=== PATIENT | female | born 1950 | race Caucasian/White ===

== ENCOUNTER 2018-01-28 00:02 | Outpatient (CLI) | payer MEDICARE, BC, SELFPAY ==
--- NOTE | 2018-01-28 11:10 | DI.RAD_ITS ---
SYMPTOMS/DIAGNOSIS: SCREENING FOR OSTEOPOROSIS IN POSTMENOPAUSAL WOMAN, Z78.0 DEXA SCAN: Routine examination. Comparison is 2006. The single lateral view of the spine shows no compression deformities. Evaluation of the left hip shows a total T score of 1.1 and a Z score of 2.5. This is within normal limits. This compares with a total T score of 1.7 from 2006. Evaluation of the lumbar spine shows a total T score of 0.2 and a Z score of 2.1. This is within normal limits. This compares with a total T score of 1.5 from 2006. IMPRESSION: No evidence of osteoporosis.
== END 2018-01-28 00:22 ==
PROVIDERS: PCP Family Medicine; Visit Provider Nurse Practitioner Family
DX: Z13.820 Encounter for screening for osteoporosis (principal); Z78.0 Asymptomatic menopausal state
CPT/HCPCS: 77080

== ENCOUNTER 2018-01-28 00:19 | Outpatient (CLI) | payer MEDICARE, BC, SELFPAY ==
--- NOTE | 2018-01-28 10:30 | DI.MAMMO_ITS ---
SYMPTOM/DIAGNOSIS: DIAGNOSTIC, 6 MO. F/U, F/U ABNL MAMMO RIGHT MAMMOGRAM: Mammograms were interpreted according to the usual protocol including computer analysis with CAD system, tomosynthesis and C view imaging. Comparison is made with prior examinations. Breast density, Category C. No suspicious masses or microcalcifications are seen. There has been no significant change compared to the prior examinations. IMPRESSION: No evidence for malignancy. Yearly mammography should resume in 6 months with screening mammograms. Category 1. The findings were discussed with the patient on the date of the examination. SA ASSESSMENT OF FINDINGS: Negative. Category 1. Patient will receive a letter notifying them of these results. Bi-RADS category C. The breasts are heterogeneously dense, which may obscure small masses.
[2018-01-28 10:35] LABS: Anion Gap 9.7 mmol/L (3-11); BUN 15 mg/dL (7-18); CO2 27.3 mmol/L (21.0-32.0); CREATININE 0.88 mg/dL (0.55-1.02); Calcium 8.6 mg/dL (8.5-10.1); Chloride 103 mmol/L (98-107); Cholesterol 224 mg/dL (50-200); Glucose 95 mg/dL (70-100); HDL Cholesterol 38 mg/dL (40-60); LDL CHOLESTEROL 151 mg/dL (<100); Potassium 4.1 mmol/L (3.5-5.1); Sodium 140 mmol/L (136-145); TSH (W/Ref FT4) 1.59 uIU/mL (0.358-3.74); Triglyceride 209 mg/dL (30-150)
== END 2018-01-28 00:39 ==
PROVIDERS: Nurse Practitioner Family; PCP Family Medicine; Visit Provider Obstetrics & Gynecology Gynecology
DX: Z12.31 Encounter for screening mammogram for malignant neoplasm of breast (principal); R92.8 Other abnormal and inconclusive findings on diagnostic imaging of breast; N64.59 Other signs and symptoms in breast; E78.5 Hyperlipidemia, unspecified
CPT/HCPCS: 36415; 77061; 77065; 77080; 80048; 80061; 83721; 84443; G0279

== ENCOUNTER 2018-09-18 00:17 | Outpatient (CLI) | payer MEDICARE, BC, SELFPAY ==
--- NOTE | 2018-09-18 13:15 | DI.MAMMO_ITS ---
SYMPTOMS/DIAGNOSIS: SCREENING, DENSE BREASTS, Z12.31 MAMMOGRAM: Mammograms were interpreted according to the usual protocol including computer analysis with CAD system, tomosynthesis and C view imaging. The breast tissue is heterogeneously radiodense which lowers the sensitivity of the study. There is no dominant mass. No suspicious calcifications and there has been no significant interval change when compared with prior images. SUMMARY: No evidence of malignancy, Category I, yearly screening mammography is recommended. Breast density Category C. SA ASSESSMENT OF FINDINGS: Negative. Category 1. Patient will receive a letter notifying them of these results. Bi-RADS category C. The breasts are heterogeneously dense, which may obscure small masses.
== END 2018-09-18 00:37 ==
PROVIDERS: PCP Family Medicine; Visit Provider Obstetrics & Gynecology Gynecology
DX: Z12.31 Encounter for screening mammogram for malignant neoplasm of breast (principal)
CPT/HCPCS: 77063; 77067

== ENCOUNTER 2018-12-03 13:00 | Outpatient (CLI) | payer MEDICARE, BC, SELFPAY ==
--- NOTE | 2018-12-03 13:00 | DI.RAD_ITS ---
SYMPTOMS/DIAGNOSIS: RIGHT KNEE PAIN, M25.561 RIGHT KNEE: The joint spaces are well maintained. There are no significant degenerative changes. No joint effusion is seen. IMPRESSION: Negative right knee.
== END 2018-12-03 13:20 ==
PROVIDERS: PCP Family Medicine; Visit Provider Family Medicine
DX: M25.561 Pain in right knee (principal)
CPT/HCPCS: 73562

== ENCOUNTER 2019-11-30 02:15 | Outpatient (CLI) | payer MEDICARE, BC, SELFPAY ==
--- NOTE | 2019-11-30 11:30 | DI.MAMMO_ITS ---
EXAM: MG MAMMO SCREENING CLINICAL HISTORY: screening TECHNIQUE: Bilateral full field digital CC and MLO mammographic images were obtained with 3D tomosyn thesis and utilizing computer aided detection (CAD). COMPARISON: Available for comparison. FINDINGS: Masses/Architectural Distortion: There is an asymmetric density in the upper-outer quadrant of the le ft breast posteriorly. A spot compression view and a left breast ultrasound are requested for furthe r evaluation. Microcalcifications: No suspicious pleomorphic-type are seen. Skin Thickening/Nipple Retraction: None. IMPRESSION: 1. Asymmetric density in the upper-outer quadrant of the left breast posteriorly. 2. Spot compression view and left breast ultrasound are requested for further evaluation. BI-RADS Category 0 - Assessment Incomplete: Need additional imaging evaluation Breast Density - Category C - Heterogeneously dense The mammogram demonstrates the patient's breast tissue is dense. Dense breast tissue is very common a nd is not abnormal but dense breast tissue can make it harder to find cancer on a mammogram. Also, de nse breast tissue may increase their breast cancer risk. This information about the [facility] was provided to the patient to raise their awareness. Use this report when you speak wi th the patient about their risks for breast cancer, which includes their family history. At that time , you may recommend for more screening tests (Ultrasound or MRI) as they might be useful based on the ir risk. A negative radiographic report should not delay biopsy if a dominant or clinically suspicious mass is present. Up to ten percent of cancers are not identified on mammography. A negative report may reinforce clinical impression. Adenosis and dense breasts may obscure an underlying neoplasm. False positive reports average 6 to 10%. Patient will receive a letter notifying them of these results.
== END 2019-11-30 02:35 ==
PROVIDERS: PCP Family Medicine; Visit Provider Obstetrics & Gynecology Gynecology
DX: Z12.31 Encounter for screening mammogram for malignant neoplasm of breast (principal); R92.2 Inconclusive mammogram
CPT/HCPCS: 77063; 77067

== ENCOUNTER 2019-12-17 01:24 | Outpatient (CLI) | payer MEDICARE, BC, SELFPAY ==
--- NOTE | 2019-12-17 | DI.US_ITS ---
EXAM: MG MAMMO SCREEN CALL BACK UNI CLINICAL HISTORY: ASYMMETRIC DENSITY IN UPPER OUTER QUAD LT BREAST, SPOT COMPRESSION AND TECHNIQUE: Mammograms were interpreted according to the usual protocol including computer analysis w ith CAD system, tomosynthesis and C-view imaging. COMPARISON: FINDINGS: Additional mammographic views of the left breast and left breast ultrasound are interpreted in conjun ction. These examinations were obtained to evaluate an area masslike radiodensity of the upper outer quadrant of the left breast, spot compression views in CC and MLO projections show suggestion of a s piculated mass, there has been an asymmetric radiodensity in this region on numerous prior mammograms but the findings on today's examination due appear to show interval change from the prior studies. The breast ultrasound shows a heterogeneous predominantly hypoechoic mass which is wider than tall an d which measures about 11 millimeters in greatest diameter. This shows mildly increased vascular carrol w on doppler evaluation. This lies in approximately the 3 o'clock position 8 cm from nipple. Border s are slightly irregular with perhaps mild spiculation. IMPRESSION: Suspicious left breast mass as described above, biopsy recommended, this may be accomplished with ult rasound guidance. BI-RADS Cat 4 - Suspicious Abnormality: Biopsy should be considered Breast Density - Category C - Heterogeneously dense
== END 2019-12-17 01:44 ==
PROVIDERS: PCP Nurse Practitioner; Visit Provider Obstetrics & Gynecology Gynecology
DX: R92.8 Other abnormal and inconclusive findings on diagnostic imaging of breast (principal); N63.21 Unspecified lump in the left breast, upper outer quadrant; R92.2 Inconclusive mammogram
CPT/HCPCS: 76642; 77063; 77067

== ENCOUNTER 2019-12-21 00:31 | Outpatient (CLI) | payer MEDICARE, BC, SELFPAY ==
--- NOTE | 2019-12-21 | DI.US_ITS ---
EXAM: BREAST MASS, ULTRASOUND GUIDED BIOPSY COMPARISON: No exams were available for comparison TECHNIQUE: Ultrasound performed using standard protocol. FINDINGS: Sonography was provided for Dr. Fernandez during the performance of a left breast biopsy. Please refer to the procedure report for complete details. DATA REPOSITORY:
--- NOTE | 2019-12-21 14:35 | BREAST_PTH ---
PATIENT: Carolina Tom LOC: [facility] U#:[id number] AGE/SX: 69/F ROOM: RE12/21/[address]: Sheila Fernandez MD : 1950 BED: DIS: 12/21/2019 SPEC #: [id number] RECD: 12/21/19 15:25 STATUS: DANNI REQ #: [id number] CICI: 12/21/19 14:[address]: Sheila Fernandez DEPT: Surgical Specimen RECD BY: Makenna Collado ENTERED: 12/21/19 15:26 SP TYPE: Breast OTHR DR: Mary Murray, PhD SENIOR [employer] ADF DEVELOPER Tissues: 1 - BREAST BX NEEDLE Procedures: GROSS AND MICRO LEVEL 4 Her-2 Dual KATHRYN ESTROGEN/PROGESTERONE RECEPTOR IPEX STAIN Comments: [id number]
--- NOTE | 2019-12-21 14:55 | W.PM.OP ---
Date of service: 12/21/19 Time of Service: 14:56 Operative Note Operative Note DATE OF PROCEDURE: 12/21/19 PRE-OP DIAGNOSIS: Abnormal left breast mammogram/US POST-OP DIAGNOSIS: same PROCEDURE: US guided needle core biopsy left breast Localization clip placement SURGEON: Sheila Fernandez ANESTHESIA: local Indications: This 69 year old had an abnormal screening mammogram which showed a spiculated lesion at the 3:00 position. Ultrasound confirmed an 11mm nodule [id number] from the nipple. Procedure Description: The patient was supine on the US table. US imaging performed by the [facility] showed the lesion at the 3-4 oclock location in the left breast. There was a subtle fullness here on exam. The skin was cleansed with a Chloroprep and the skin infiltrated with 1% lidocaine. A small nell was made in the skin the with 11 blade. Using US guidance, the 14 gauge needle core biopsy device was passed into the mass and fired on two separate passes. Each time the device was visualized in the mass. A localization clip was placed under US guidance. There was good hemostasis. A sterile Bandaid was applied. She tolerated the procedure well.
== END 2019-12-21 00:51 ==
PROVIDERS: PCP Nurse Practitioner; Visit Provider Surgery
DX: C50.812 Malignant neoplasm of overlapping sites of left female breast (principal); R92.2 Inconclusive mammogram; Z17.0 Estrogen receptor positive status [ER+]
CPT/HCPCS: 19083; 88305; 76942; 88360; 88368

== ENCOUNTER → 2019-12-28 10:21 | Outpatient (BNVA) | payer MEDICARE, BC, SELFPAY | PROVIDERS: PCP Nurse Practitioner; Referring Provider Nurse Practitioner; Visit Provider Surgery | DX: C50.912 Malignant neoplasm of unspecified site of left female breast (principal); Z80.3 Family history of malignant neoplasm of breast | CPT/HCPCS: 99214 ==

== ENCOUNTER 2020-01-11 00:41 | Outpatient (CLI) | payer MEDICARE, BC, SELFPAY ==
--- NOTE | 2020-01-11 10:10 | DI.RAD_ITS ---
EXAM: XR CHEST 2V PA LATERAL CLINICAL HISTORY: Breast cancer,C50.919 TECHNIQUE: 2D digital imaging was performed. COMPARISON: No exams were available for comparison FINDINGS: MEDIASTINUM: Normal. HEART: Normal. PULMONARY VASCULATURE: Normal. LUNGS: Clear. PLEURAL SPACE: No pleural effusion or pneumothorax. BONE:Within normal limits for the patient's age. OTHER FINDINGS:Normal. IMPRESSION: No acute pulmonary findings. DATA REPOSITORY: RADIATION DOSE DELIVERED:
== END 2020-01-11 01:01 ==
PROVIDERS: PCP Nurse Practitioner; Visit Provider Surgery
DX: C50.812 Malignant neoplasm of overlapping sites of left female breast; Z01.818 Encounter for other preprocedural examination; Z01.812 Encounter for preprocedural laboratory examination
CPT/HCPCS: 36415; 80053; U0003; 71046; 85025

== ENCOUNTER 2020-01-11 01:29 | Outpatient (CLI) | payer MEDICARE, BC, SELFPAY ==
[2020-01-11 10:03] LABS: Abs Immature Grans 0.01 10^3/uL (0.0-0.06); Absolute Basophil Count 0.02 10^3/uL (0.0-0.2); Absolute Eosinophil Count 0.01 10^3/uL (0.0-0.7); Absolute Lymphocyte Count 1.49 10^3/uL (1.2-3.4); Absolute Neutrophil Count 2.91 10^3/uL (1.2-6.7); Basophils % 0.4; Eosinophils % 0.2; HGB 13.4 g/dL (11.2-15.7); Immature Grans % 0.2; Lymphocytes % 32.1; MCHC 34.4 % (32.0-36.0); MCV 90.3 fL (80-95); MPV 9.6 fL (8.0-11.0); Monocytes % 4.3; Neutrophils % 62.8; Nucleated RBC 0 %; Platelet Count 187 10^3/uL (130-400); RBC 4.32 10^6/uL (3.93-5.22); RDW 12.2 % (11.7-14.6); RDW-SD 40.7 fL; WBC 4.64 10^3/uL (4.4-10.8)
[2020-01-11 11:08] LABS: ALT 39 U/L (14-59); AST 20 U/L (15-37); Albumin 3.9 g/dL (3.4-5.0); Alkaline Phosphatase 57 U/L (46-116); BUN 16 mg/dL (7-18); Bilirubin, Total 0.3 mg/dL (0.2-1.0); CREATININE 0.94 mg/dL (0.55-1.02); Calcium 9.3 mg/dL (8.5-10.1); Chloride 100 mmol/L (98-107); Estimated GFR 59.04 (mL/min/1.73m2); Glucose 187 mg/dL (74-106); Potassium 3.9 mmol/L (3.5-5.1); Sodium 140 mmol/L (136-145); Total Protein 7.2 g/dL (6.4-8.2)
== END 2020-01-11 01:49 ==
PROVIDERS: PCP Nurse Practitioner; Visit Provider Surgery
DX: C50.812 Malignant neoplasm of overlapping sites of left female breast (principal); Z01.818 Encounter for other preprocedural examination; Z01.812 Encounter for preprocedural laboratory examination
CPT/HCPCS: 36415; 80053; 85025

== ENCOUNTER 2020-01-11 02:07 | Outpatient (CLI) | payer MEDICARE, BC, SELFPAY ==
[2020-01-12 20:26] LABS: COVID-19 RT-PCR Result NEGATIVE (Negative)
== END 2020-01-11 02:27 ==
PROVIDERS: PCP Nurse Practitioner; Visit Provider Surgery
DX: Z11.59 Encounter for screening for other viral diseases (principal); Z01.818 Encounter for other preprocedural examination
CPT/HCPCS: U0003

== ENCOUNTER 2020-01-14 07:00 | Day surgery (SDC) | payer MEDICARE, BC, SELFPAY ==
[2020-01-14] VITALS (9 sets, daily range): BP systolic 133–192; BP diastolic 67–92; PULSE 61–83; RESP 10–19; TEMP 36.3–36.9; O2SAT 95–98
--- NOTE | 2020-01-14 | DI.MAMMO_ITS ---
EXAM: MG MAMMO SPECIMEN CLINICAL HISTORY: LT BREAST CA, LUMPECTOMY. TECHNIQUE: COMPARISON: Comparison with prior examinations. FINDINGS: Left breast specimen was imaged. The left breast mass and biopsy clip are completely located within the breast specimen. The needle localization wire is in place. Impression: Left breast specimen includes the breast mass and biopsy clip. Findings were discussed with Dr. Fernandez on the date of the examination.
--- NOTE | 2020-01-14 06:30 | DI.NM_ITS ---
EXAM: NM SENTNODE INJ ONLY CLINICAL HISTORY: Left breast cancer, do prior to surg on 01/13. TECHNIQUE: Injected Dose: 1 mCi Tc-99m filtered sulfur colloid Injection only. COMPARISON: No exams were available for comparison FINDINGS: 1 mCi of technetium 99 M sulfur colloid was injected into the left breast. No images were obtained. IMPRESSION: 1. [place] node injection only. DATA REPOSITORY:
--- NOTE | 2020-01-14 08:50 | DI.MAMMO_ITS ---
EXAM: MG MAMMO NEEDLE LOC UNI CLINICAL HISTORY: LT BREAST CA, LUMPECTOMY. TECHNIQUE: The procedure, risks and benefits were explained to the patient and consent obtained for a needle localization. Patient was placed sitting upright in the digital mammography table. Suitable site at the lateral asp ect of the breast was identified using mammographic imaging. The overlying skin prepped and draped in usual sterile fashion. Lidocaine 1% was used for local and deep anesthesia. COMPARISON: Prior examinations for comparison. FINDINGS: Using mammographic guidance, a 5 cm [employer] needle was inserted adjacent to the biopsy clip and left br east mass. The location of the needle was confirmed using orthogonal views. Localizing wire was then deployed. The final location of the localizing wire was again confirmed using orthogonal views. The patient tolerated the procedure well and was sent to the operating room in stable and unchanged c ondition. IMPRESSION: Successful needle localization of biopsy clip and left breast mass. Findings were discussed with Dr. Fernandez on the date of the examination.
[2020-01-14] MEDS: Sodium Bicarbonate 50 MEQ/50 ML VIAL IJ (08:55)
[2020-01-14] MEDS: Lidocaine 1% Multi-Dose 20 ML VIAL IJ (08:56)
[2020-01-14] MEDS: Lactated Ringers 1,000 ML 80 ML IV (09:14)
--- NOTE | 2020-01-14 09:19 | W.PM.DSUDISC ---
Discharge Plan Disposition Patient Disposition: HOME Condition: Good Discharge Details Reason For Visit: Left breast lumpectomy and sentinel node biopsy Attending Provider: Sheila Fernandez Primary Care Provider: Mary Murray Home Meds and New Rx's Prescriptions: New hydrocodone-acetaminophen 5-325 mg Tablet 1 - 2 tab PO Q4H PRN (Reason: Pain) Qty: 20 RF: 0 Continued diclofenac sodium 1 % gel 2 gm TP QID PRN (Reason: pain) Qty: 100 RF: 0 ascorbic acid (vitamin C) 1,000 MG tablet 1,000 mg PO DAILY RF: 0 CardioVid PLUS 1 EACH capsule 1 ea PO DAILY RF: 0 Daily Multiple 1 EACH tablet 1 tab-cap PO DAILY RF: 0 vitamin B complex 1 EACH tablet 1 ea PO DAILY RF: 0 folic acid 1 MG tablet 1 mg PO DAILY RF: 0 cholecalciferol (vitamin D3) [Vitamin D3] 2,000 UNIT capsule 2,000 unit PO PRN RF: 0 Discharge Instructions Additional Instructions: The top bandages can be removed tomorrow. The steri strips will usually stick for about a week. When the edges start to curl up, they can be removed. It is okay to shower tomorrow, the water can run over the steri strips Do not swim or soak in a tub for two weeks Call for any concerns including fever, increased pain, vomiting, incision redness or drainage. Your urine may be blue/green for a day related to the blue dye injection. This is expected. Do not lift more than 15 pounds for two weeks or raise left arm above shoulder height. Walking and stairs are fine. Do not drive if on narcotic pain meds or if limited by pain. May use Tylenol alternating with ibuprofen for pain control. Ice is also an option. The maximum dose for Tylenol is 4000 mg/day. May use ibuprofen 800 mg every 8 hours as needed. If concerned about constipation, you may use a stool softener or milk of magnesia. Referrals: Sheila Fernandez MD [ [facility] STAFF PHYSICIAN] - (Return in 7-10 days for a postop check) Activity:: Do not lift more than 15# Remove Dressings/Wound Care:: 24 hours Shower/Bathe:: 24 hours Diet:: As Tolerated Discharge Orders Discharge Orders: Discharge Order (Routine); Ordered 01/14/20 Ordered By: Sheila Fernandez DS: Diagnosis Discharge Diagnosis (1) Breast cancer: Status: Chronic
[2020-01-14] MEDS: ceFAZolin 2 GM/50 ML BAG IVPB (09:28)
--- NOTE | 2020-01-14 10:31 | BREAST_PTH ---
PATIENT: Carolina Tom LOC: [facility] U#:[id number] AGE/SX: 69/F ROOM: RE01/14/[address]: Sheila Fernandez MD : 1950 BED: DIS: 01/14/2020 SPEC #: [id number] RECD: 01/15/20 12:44 STATUS: DANNI REQ #: [id number] CICI: 01/14/20 10:[address]: Sheila Fernandez DEPT: Surgical Specimen RECD BY: Tiera Jones ENTERED: 01/15/20 12:52 SP TYPE: Breast OTHR DR: Mary Murray, PhD VICE PRESIDENT REGULATORY Tissues: 1 - BREAST INCISION/EXCISION 2 - BREAST INCISION/EXCISION 3 - BREAST INCISION/EXCISION 4 - BREAST INCISION/EXCISION 5 - BREAST INCISION/EXCISION Procedures: GROSS AND MICRO LEVEL 4 GROSS AND MICRO LEVEL 5 Comments: [id number] (ALL SPECIMENS RADIOACTIVE)
[2020-01-14] MEDS: Bupivacaine LIPOSOME/PF 133 MG/10 ML VIAL IJ (11:32)
[2020-01-14] MEDS: Bupivacaine 0.5% Pres-Free 30 ML VIAL (11:33)
[2020-01-14] MEDS: HYDROmorphone 2 MG/ML VIAL IVP (12:05)
[2020-01-14] MEDS: HYDROcodone 5/Acetaminophen 325 TAB PO (13:28)
--- NOTE | 2020-01-15 08:14 | W.PM.OP ---
Operative Note Operative Note DATE OF PROCEDURE: 01/14/20 PRE-OP DIAGNOSIS: Left breast invasive ductal cancer POST-OP DIAGNOSIS: same PROCEDURE: Needle localized left breast lumpectomy Left axillary sentinel node biopsy SURGEON: Sheila Fernandez ANESTHESIA: GETA and local Indications: This 69 year old woman presented for screening mammogram. A new spiculated lesion was present in the left breast at the 3-4 o clock location. US guided needle core biopsy showed invasive ductal cancer. BRCA testing negative. Procedure Description: The patient was taken to nuclear medicine preoperatively and underwent injection of radioactive sulfur colloid into the left nipple. She had a wire placed into the left breast under ultrasound guidance. She was then taken to the operating room. After induction of general anesthetic, methylene blue injected into the retroareolar location. The breast and axilla were prepped and draped sterilely. An area of high uptake was identified in the axilla with the gamma probe. An incision was made here after injecting local anesthetic. Tissue was divided with cautery down into the axillary fat. There was a palpable node identified fairly superficially that was excised but did not have any uptake. The radioactive node was identified and excised. This was labeled as sentinel node #1. The node was definitely hot but the gamma probe was unable to identify a count on the back table. There is a second hot node that was excised and was less radioactive than the first. This was sentinel node #2. There is no background axillary radioactivity. One other palpable node was sent with the other palpable node removed. The wound was irrigated and there was good hemostasis. I injected 0.5 with Marcaine/Exparel. The skin was closed with a running 4 Monocryl stitch. The left breast lumpectomy was then performed. An incision was made in the outer lower quadrant of the left breast where the wire entered. This was fairly close to the inframammary fold. The subcutaneous tissue was divided with and skin flaps raised. The breast tissue around the wire was grasped with Allis and a wide excision made for negative margins. The specimen was labeled with a short stitch superior long stitch laterally and loop at the deep margin. Palpation of the specimen revealed that the mass is closer to the medial margin. I did take an additional medial margin with a stitch marking the final margin. This was sent to mammography. The mammogram was reviewed and showed the abnormality was contained within the specimen. Hemostasis was achieved in the cavity with cautery. Clips are placed to mercy the periphery of the cavity. Marcaine and Exparel were injected. The skin was closed with interrupted deep dermal 4-0 Monocryl suture then a subcuticular stitch. She tolerated the procedure well and was stable to recovery.
== END 2020-01-14 14:00 | disposition home or self-care (01) ==
PROVIDERS: PCP Nurse Practitioner; Visit Provider Surgery
PROC: (CPT 19301; principal; 2020-01-14 09:00)
PROC: (CPT 19301; 2020-01-14 09:00)
DX: C50.512 Malignant neoplasm of lower-outer quadrant of left female breast (principal); E78.5 Hyperlipidemia, unspecified
CPT/HCPCS: 19301; 38500; 38900; 77061; 77065; 88305; A9541; 19281; 88307; G0279; J0690; J1100; J1885; J2405; J2704; J3490

== ENCOUNTER → 2020-01-21 10:01 | Outpatient (BNVA) | payer MEDICARE, BC, SELFPAY | PROVIDERS: PCP Nurse Practitioner; Referring Provider Nurse Practitioner; Visit Provider Surgery | DX: C50.512 Malignant neoplasm of lower-outer quadrant of left female breast (principal) ==

== ENCOUNTER 2020-02-05 02:34 | Outpatient (CLI) | payer MEDICARE, BC, SELFPAY ==
[2020-02-07 11:27] LABS: SARS-CoV-2 RNA Not Detected (NotDetected); SARS-CoV-2 RNA Source Nasal/Nares
== END 2020-02-05 02:54 ==
PROVIDERS: PCP Nurse Practitioner; Visit Provider Surgery
DX: Z11.59 Encounter for screening for other viral diseases (principal); Z01.818 Encounter for other preprocedural examination
CPT/HCPCS: U0003

== ENCOUNTER 2020-02-09 10:42 | Day surgery (SDC) | payer MEDICARE, BC, SELFPAY ==
[2020-02-09 10:58] VITALS: BP 145/83; PULSE 70; RESP 16; TEMP 36.4; O2SAT 97
[2020-02-09] MEDS: Lactated Ringers 1,000 ML 80 ML IV (11:20)
--- NOTE | 2020-02-09 13:46 | W.PM.HP.N ---
Date of service: 02/09/20 Time of Service: 13:47 Assessment and Plan Assessment and plan (1) H/O adenomatous polyp of colon: Status: Acute Assessment and plan: I advised colonoscopy. The procedure was described including the risks of perforation with need for surgery or bleeding. Patient agrees to proceed. History of Present Illness Narrative: This patient presents for colonoscopy. In 2008 she had a tubular adenoma removed. In 2014 a lymphoid aggregate was identified but no polyps. She has no new GI symptoms. Review of Systems All systems reviewed & are unremarkable except as noted in HPI and below PFSH Medical History (Updated 02/09/20 @ 13:49 by Sheila Fernandez MD) Hyperlipidemia Tinnitus Vertigo Surgical History (Updated 02/09/20 @ 13:48 by Sheila Fernandez MD) Excisional biopsy of left forearm mass (02/08/15) Ligation of fallopian tube (~1977) Status post left breast lumpectomy Family History Mother , Heart attack at age 51. Myocardial infarction Emphysema of lung Asthma Father , OLD AGE at age 74. Dementia Heart disease Myocardial infarction Sister Diabetes Heart disease Sister , Breast CA at age 74. Breast cancer Diagnosed at 65yrs old; metastasized Asthma Sister No problems noted. Brother , Lung Cancer at age 62. Diabetes Lung cancer Brother Diabetes Heart disease Brother , Lung cancer at age 66. Heart disease Lung cancer Brother Diabetes Brother Heart disease Maternal Grandfather , 80 No problems noted. Paternal Grandfather Cancer Maternal Grandmother , Ovarian Cancer at age 78. Ovarian cancer Paternal Grandmother No problems noted. Daughter No problems noted. Social History Smoking/Tobacco Use Status: Never Smoking risk assessment performed?: Yes Alcohol Intake: never Counseling given: Yes Drug use: Never Substance use type: does not use Caregiver/Support person: No Household members: none Housing: house Do you need help understanding health information?: Never Pets and animals: No Sexually active: No Current gender identity: female What is your relationship status?: How often do you talk on the phone with friends or family?: three or more times per week How often do you get together with friends or relatives?: decline to answer How often do you attend hindu or rastafarian services?: decline to answer Do you belong to any clubs or organized social groups?: no Panel score (0-1 are the most socially isolated patients): 1 What type of physical activity do you participate in: decline to answer Duration: decline to answer Frequency: decline to answer Haven/Denominational: Restorationist Special haven needs: No Seatbelt use: always Drive intox or ride w/intox racing car driver: No Do you feel safe at home: Yes Do you feel safe in your relationship?: Yes Female Reproductive History Menstrual Menopause type: natural History History 2 Para 2 Hx # Term Pregnancies Multiple births Hx # Pregnancies Ectopic pregnancies AB induced Hx Number of Living Children AB spontaneous Meds Home Medications and Allergies Home Medications Medication Instructions Recorded Confirmed Type CardioVid PLUS 1 ea PO DAILY 10/06/12 02/09/20 History ascorbic acid (vitamin C) 1,000 mg PO DAILY 10/06/12 02/09/20 History Daily Multiple 1 tab-cap PO DAILY tab-cap 11/18/12 02/09/20 History folic acid 1 mg PO DAILY tab-cap 05/25/14 02/09/20 History vitamin B complex 1 ea PO DAILY 05/25/14 02/08/20 History cholecalciferol (vitamin D3) 2,000 unit PO PRN 07/02/17 02/09/20 History [Vitamin D3] Allergies Allergy/AdvReac Type Severity Reaction Status Date / Time No Known Allergies Allergy Unverified 02/09/20 10:55 Exam Narrative Exam Narrative: Alert Lungs CTA Heart RRR Results Last Vital Signs Temp 97.5 F L 02/09/20 10:58 Pulse 70 02/09/20 10:58 Resp 16 02/09/20 10:58 BP 145/83 H 02/09/20 10:58 Pulse Ox 97 02/09/20 10:58 COVID-19 Screening Have you,or household,traveled outside [place] in last 14 days?: No Had IN PERSON contact w/suspected or confirmed C-19 person: No
--- NOTE | 2020-02-09 13:55 | W.PM.DSUDISC ---
Discharge Plan Disposition Patient Disposition: HOME Condition: Good Discharge Details Reason For Visit: Colonoscopy Attending Provider: Sheila Fernandez Primary Care Provider: Mary Murray Home Meds and New Rx's Prescriptions: Continued ascorbic acid (vitamin C) 1,000 MG tablet 1,000 mg PO DAILY RF: 0 CardioVid PLUS 1 EACH capsule 1 ea PO DAILY RF: 0 Daily Multiple 1 EACH tablet 1 tab-cap PO DAILY RF: 0 vitamin B complex 1 EACH tablet 1 ea PO DAILY RF: 0 folic acid 1 MG tablet 1 mg PO DAILY RF: 0 cholecalciferol (vitamin D3) [Vitamin D3] 2,000 UNIT capsule 2,000 unit PO PRN RF: 0 Discharge Instructions Additional Instructions: Findings: Your colonoscopy was normal. Follow up: Plan for routine screening colonoscopy in 10 years or sooner if symptoms indicate. Please call if you develop: fevers >101.5 Nausea or Vomiting Abdominal pain that is not transient DAY SURGERY UNIT POST COLONOSCOPY INSTRUCTIONS 1. Because there will be medication in your system for the next 24 hours, you may feel a little sleepy. Your coordination will be affected. Therefore: a. Do not drive or operate dangerous equipment for 24 hours. b. Do not drink alcohol beverages for 24 hours (not even beer). c. Plan to go home and rest for the day. 2. Generally there are no restrictions on your activity after a day or so has gone by, but you may feel a bit fatigued for a few days. 3 After you arrive home you may have a light meal and return to a normal diet as you can tolerate it without feeling sick to your stomach. 4. After surgery, you may feel pain or discomfort. This should be only transient, but if it persists please contact your doctor. 5. If there are any questions regarding the findings of your procedure, please feel free to contact your doctor. 6. If you are unable to contact your doctor with a problem, contact the hospital at [phone]. 7. Continue all your regular medications unless directed otherwise. I understand the above instructions and have no questions. Signature of Patient or Responsible Adult Escort Date/Time Name of Responsible Adult Escort Signature of Nurse Date/Time Activity:: Activity as Tolerated Diet:: As Tolerated Discharge Orders Discharge Orders: Discharge Order (Routine); Ordered 02/09/20 Ordered By: Sheila Fernandez DS: Diagnosis Discharge Diagnosis (1) H/O adenomatous polyp of colon: Status: Acute
--- NOTE | 2020-02-09 13:56 | W.COLOREPORT ---
Date of service: 02/09/20 Time of Service: 14:50 Colonoscopy Report Date of procedure: 02/09/20 Pre-op diagnosis general: History of colon polyps Post-op diagnosis procedure note: other (Normal colon) Procedure: Colonoscopy Surgeon: Sheila Fernandez Anesthesia proc note operative: MAC Indications: This 69 year old woman had a tubular adenoma removed in 2008. Her colonoscopy in 2014 was normal. No symptoms or FH colon cancer. Procedure Description: The patient was placed in the left Dalton position. Propofol was titrated to sedation. Digital rectal examination revealed no abnormalities. The scope was advanced to the cecum without difficulty. The ileocecal valve and appendiceal orifice were clearly identified. The prep was good. The scope was slowly withdrawn over the course of greater than 6 minutes with no abnormalities seen in the ascending, transverse, descending, sigmoid colon or rectum including on retroflexed view. The patient tolerated the procedure well and was stable to recovery. Plan for routine screening colonoscopy in 10 years or sooner if symptoms indicate.
[2020-02-09 15:07] VITALS: BP 129/68; PULSE 58; RESP 16; TEMP 36.6; O2SAT 98
== END 2020-02-09 15:42 | disposition home or self-care (01) ==
PROVIDERS: PCP Nurse Practitioner; Visit Provider Surgery
PROC: 0DJD8ZZ Inspection of Lower Intestinal Tract, Via Natural or Artificial Opening Endoscopic (ICD-10-PCS; CPT 45378; principal; 2020-02-09 12:45)
DX: Z12.11 Encounter for screening for malignant neoplasm of colon (principal); Z86.010 Personal history of colon polyps
CPT/HCPCS: G0105; NC; J2405

== ENCOUNTER 2020-06-01 01:13 | Outpatient (CLI) | payer MEDICARE, BC, SELFPAY ==
--- NOTE | 2020-06-01 13:57 | DI.CT_ITS ---
EXAM: CT CHEST WO CLINICAL HISTORY: LUNG NODULE, R91.1,LT BREAST CA,C50.912,CT SIM SHOWED LLL NODULE. TECHNIQUE: Imaging protocol: Axial computed tomography images were obtained and coronal and sagittal reformatted images were created and reviewed. COMPARISON: No exams were available for comparison FINDINGS: Tracheobronchial tree: Patent where visualized. Pulmonary parenchyma: There is a 0.5 cm pulmonary nodule which abuts the medial aspect of the right m ajor fissure (series 4, image 175). It has a triangular shape. There is a 0.7 cm noncalcified pulmo nary nodule in the right lower lobe (series 4, image 326). There are 3 other less than 4 mm nodules in the right lower lobe. There are few noncalcified pulmonary nodules in the left lower lobe. The l argest measures about 0.4 cm. No focal consolidating infiltrates. Mediastinum and Chikis: No dominant adenopathy or fluid collection. Pleura: No effusion or pneumothorax. Heart: The heart is not dilated. Mild coronary artery calcification. No pericardial effusion. Aorta: Thoracic aorta non-dilated. Atherosclerosis. Upper abdomen: Diffuse decreased attenuation of the liver consistent with fatty infiltration. There are 3 hypodense masses identified in the visualized portions of the liver. The largest is in the po sterior segment of the right lobe of the liver and measures 2.3 cm. Lymph nodes: Within normal limits. Soft tissues: There are clips seen in the left breast which may reflect prior lumpectomy. Please cor relate clinically. Bones:No suspicious lytic or sclerotic lesions. IMPRESSION: 1. Several bilateral pulmonary nodules. The largest is in the right lower lobe measures 0.7 cm. Met astatic disease should be excluded in the patient with a history of breast carcinoma. Inflammatory o r infectious processes cannot be entirely excluded. 2. Hypodense lesion seen within the liver. Correlation with prior examinations, if there are any in existence. If there are no prior studies or additional imaging is needed, a CT scan of the abdomen i s recommended for further evaluation. RADIATION DOSE DELIVERED: 520.16mGy.cm Total DLP 520.16mGy.cm Total DLP DATA REPOSITORY: All CT scans at this facility are submitted to the National Radiology Data Registry (NRDR) Dose Index Registry (DIR) with the [employer] (ACR). RADIATION OPTIMIZATION: All CT scans at this facility use at least one of these dose optimization te chniques: automated exposure control; mA and/or kV adjustment per patient size (includes targeted exa ms where dose is matched to clinical indication); or iterative reconstruction.
== END 2020-06-01 01:33 ==
PROVIDERS: PCP Nurse Practitioner; Visit Provider Radiology Radiation Oncology
DX: R91.1 Solitary pulmonary nodule (principal); C50.912 Malignant neoplasm of unspecified site of left female breast; R91.8 Other nonspecific abnormal finding of lung field; K76.89 Other specified diseases of liver
CPT/HCPCS: 71250

== ENCOUNTER 2020-10-04 16:48 | Outpatient (REF) | payer MEDICARE, BC, SELFPAY ==
[2020-10-04 18:57] LABS: ALT 42 U/L (14-59); AST 24 U/L (15-37); Alkaline Phosphatase 61 U/L (46-116); Bilirubin, Direct 0.1 mg/dL (0.0-0.2); Bilirubin, Total 0.3 mg/dL (0.2-1.0); Total Protein 7.3 g/dL (6.4-8.2)
[2020-10-04 19:13] LABS: Calculated LDL 148 mg/dL (<100); Cholesterol 236 mg/dL (<200); HDL Cholesterol 32 mg/dL (40-60); Triglyceride 280 mg/dL (<150)
== END 2020-10-04 16:49 | disposition home or self-care (01) ==
LOC: NCHCN 16:48
PROVIDERS: PCP Nurse Practitioner; Visit Provider Nurse Practitioner
DX: M25.512 Pain in left shoulder (principal); E78.5 Hyperlipidemia, unspecified
CPT/HCPCS: 80061; 80076; 83036

== ENCOUNTER 2020-11-24 09:02 | Outpatient (CLI) | payer MEDICARE, BC, SELFPAY ==
--- NOTE | 2020-11-24 08:45 | DI.RAD_ITS ---
Exam(s) XR SHOULDER LT COMPLETE 2+V EXAM: XR SHOULDER LT COMPLETE 2+V CLINICAL HISTORY: left shoulder pain. TECHNIQUE: 2D digital imaging was performed. COMPARISON: No exams were available for comparison FINDINGS: No evidence of fracture or dislocation. No abnormal soft tissue calcifications. Subacromial space i s not diminished. No obvious degenerative changes in the glenohumeral and AC joints. Bone density n ormal. No osseous lesions. Coracoid process appears unremarkable. IMPRESSION: No significant radiograph findings in these two views of the left shoulder. DATA REPOSITORY: RADIATION DOSE DELIVERED:
== END 2020-11-24 09:03 | disposition home or self-care (01) ==
LOC: DIORS 09:02
PROVIDERS: PCP Nurse Practitioner; Referring Provider Nurse Practitioner; Visit Provider Student in an Organized Health Care Education/Training Program
DX: M25.512 Pain in left shoulder (principal); M75.52 Bursitis of left shoulder; M75.82 Other shoulder lesions, left shoulder
CPT/HCPCS: 99213; 73030

== ENCOUNTER 2020-11-28 01:51 | Outpatient (CLI) | payer MEDICARE, BC, SELFPAY ==
--- NOTE | 2020-11-28 | DI.CT_ITS ---
Exam(s) CT CHEST/ABD/PEL W EXAM: CT CHEST/ABD/PEL W CLINICAL HISTORY: LT BREAST CA,REEVALUATE FOR PULMONARY NODULES AND HYPODENSE AREA IN LIVER TECHNIQUE: Imaging Protocol: Axial computed tomography images with coronal and sagittal reformatted images were created and reviewed CONTRAST MATERIAL: Intravenous: Omnipaque 350 Contrast volume:structured data in ml Oral: yes / no COMPARISON: CT CT CHEST WO from 06/01/2020 FINDINGS: CHEST: Tracheobronchial tree: Patent where visualized. Pulmonary parenchyma: The right perifissural nodule is unchanged. This 0.7 cm right lower lobe pulmo nary nodule appears stable. There is a small nonspecific peripheral infiltrate in the left upper lob e laterally. No architectural distortion. There are no new pulmonary nodules. Visualized thyroid gland: Unremarkable. Mediastinum and Chikis: No dominant adenopathy or fluid collection. Pleura: No effusion or pneumothorax. Heart: The heart is not dilated. No coronary artery calcifications are seen. No pericardial effusion. Aorta: Thoracic aorta non-dilated. Lymph nodes: Within normal limits. Soft tissues: There are postsurgical changes in skin thickening in the left breast consistent with sue rodriguez's known history of left breast carcinoma. Bones:No suspicious lytic or sclerotic lesions. ABDOMEN: Liver: There is diffuse decreased attenuation of the liver suggesting fatty infiltration. There are several water density lesions within the liver. The largest measures 1.7 x 2.4 cm and is located in the posterior segment of the right lobe of the liver. The next largest is seen anteriorly and measur es 1.8 x 1.8 cm. There is a 1.6 x 1.4 cm hypodense lesion in the posterior segment of the right lobe of the liver. It is not consistent with a cyst. A hepatic mass should be considered. Portal, Superior Mesenteric, and Splenic Veins: Unremarkable. Gallbladder and Biliary Tract: No radiodense calculus or dilation. Pancreas: Normal density, no abnormal calcifications or inflammatory process. Spleen: Normal. Adrenals: No masses seen. Kidneys: Normal size, contour and axis. There are single bilateral 2-3 mm nonobstructing stones in th e kidneys. There are several tiny hypodensities seen in the kidneys bilaterally. They are too small for further characterization but likely reflect small cysts. There is a 1 x 1 cm hypodense lesion i n the anterior and lateral left kidney. A mass cannot be excluded. Abdominal Aorta: Abdominal portion non-dilated. Mild atherosclerosis. Bowel: No obstruction or bowel wall thickening. No evidence of appendicitis. Diverticulosis in the s igmoid colon, but no evidence of acute diverticulitis. Small hiatal hernia. Peritoneal Cavity: No ascites, collection or mesenteric inflammatory response. No free air. Lymph Nodes: Within normal limits. Bones: No suspicious lytic or sclerotic lesions. Soft Tissues: Unremarkable. PELVIS: Bladder: Symmetric distention, no gross wall thickening. Reproductive Organs: Unremarkable as visualized. Lymph Nodes: Within normal limits. Bones: Within normal limits. IMPRESSION: 1. 1.6 x 1.4 cm hypodense lesion in the posterior segment of the right lobe of the liver. It does no t meet the criteria for simple cyst. A solid mass cannot be excluded MRI may be considered for furth er evaluation. 2. Multiple hepatic and renal cysts. 3. 1 x 1 cm hypodense lesion in the anterior lateral aspect of the left kidney. Mass cannot be exclu ded. MRI or ultrasound may be considered for further evaluation. 4. Stable pulmonary nodules. RADIATION DOSE DELIVERED: 1,502.84mGy.cm Total DLP DATA REPOSITORY: All CT scans at this facility are submitted to the National Radiology Data Registry (NRDR) Dose Index Registry (DIR) with the [employer] (ACR). RADIATION OPTIMIZATION: All CT scans at this facility use at least one of these dose optimization te chniques: automated exposure control; mA and/or kV adjustment per patient size (includes targeted exa ms where dose is matched to clinical indication); or iterative reconstruction.
[2020-11-28] MEDS: Breeza Beverage 473 ML BTL PO (08:51)
[2020-11-28] MEDS: Omnipaque 350 MG/ML 50 ML BTL IJ (08:51)
[2020-11-28 09:03] LABS: ALT 36 U/L (14-59); AST 24 U/L (15-37); Albumin 3.9 g/dL (3.4-5.0); Alkaline Phosphatase 66 U/L (46-116); Anion Gap 7.4 mmol/L (3-11); BUN 13 mg/dL (7-18); Bilirubin, Total 0.4 mg/dL (0.2-1.0); CO2 28.6 mmol/L (21.0-32.0); CREATININE 0.9 mg/dL (0.55-1.02); Calcium 8.7 mg/dL (8.5-10.1); Chloride 104 mmol/L (98-107); Glucose 110 mg/dL (74-106); Potassium 3.9 mmol/L (3.5-5.1); Sodium 140 mmol/L (136-145); Total Protein 7.5 g/dL (6.4-8.2)
[2020-11-28] MEDS: Omnipaque 350 MG/ML 100 ML BTL IV (10:47)
== END 2020-11-28 02:11 ==
PROVIDERS: PCP Nurse Practitioner; Visit Provider Nurse Practitioner Family
DX: C50.912 Malignant neoplasm of unspecified site of left female breast (principal); Z17.0 Estrogen receptor positive status [ER+]; Z79.811 Long term (current) use of aromatase inhibitors; Z12.31 Encounter for screening mammogram for malignant neoplasm of breast; K76.9 Liver disease, unspecified; Q61.02 Congenital multiple renal cysts
CPT/HCPCS: 74177; 80053; 71260; J3490; Q9967

== ENCOUNTER 2020-12-28 02:03 | Outpatient (CLI) | payer MEDICARE, BC, SELFPAY ==
--- NOTE | 2020-12-28 | DI.MAMMO_ITS ---
Exam(s) MG MAMMO SCREENING 60 MIN DUR EXAM: MG MAMMO SCREENING 60 MIN DUR CLINICAL HISTORY: SCREENING, PERSONAL H/O BREAST CA,FAMILY H/O BREAST CA,Z17.0,Z12.31,Z80.3,. TECHNIQUE: Bilateral full field digital CC and MLO mammographic images were obtained with 3D tomosyn thesis and utilizing computer aided detection (CAD). COMPARISON: Prior mammograms dating back to 2011, the most recent being December 2019. FINDINGS: Surgical clips and density probable scarring noted at the lumpectomy site posteriorly in left breast. No new significant focal findings breast. Skin thickening from radiation treatment noted. There are no new spiculated masses nor malignant appearing microcalcification groups. There is no significant architectural new distortion nor skin thickening-retraction. IMPRESSION: Previous left lumpectomy. No obvious radiographic evidence of malignancy. BI-RADS Category 2 - Benign Findings Breast Density - Category B - Scattered areas of fibroglandular density Breast density Category C or D implies that the patient has dense breast tissue. Dense breast tissue can make it harder to find cancer on a mammogram. Dense breast tissue is also associated with an incr eased risk of breast cancer. This information about the result of the mammogram report was provided to the patient to raise their awareness. Use this report when you speak with the patient about their risks for breast cancer, which includes their family history. At that time, you may recommend additional screening tests (Ultrasoun d or MRI) as these tests may add significant information. A negative radiographic report should not delay biopsy if a dominant or clinically suspicious mass is present. Up to ten percent of cancers are not identified on mammography. A negative report may reinforce clinical impression. Adenosis and dense breasts may obscure an underlying neoplasm. False positive reports average 6 to 10%. Patient will receive a letter notifying them of these results.
== END 2020-12-28 02:23 ==
PROVIDERS: PCP Nurse Practitioner; Visit Provider Nurse Practitioner Family
DX: C50.312 Malignant neoplasm of lower-inner quadrant of left female breast; Z17.0 Estrogen receptor positive status [ER+]; Z79.811 Long term (current) use of aromatase inhibitors; Z80.3 Family history of malignant neoplasm of breast; Z12.31 Encounter for screening mammogram for malignant neoplasm of breast
CPT/HCPCS: 77063; 77067

== ENCOUNTER 2021-03-23 02:36 | Outpatient (CLI) | payer MEDICARE, BC, SELFPAY ==
--- NOTE | 2021-03-23 | DI.DEXA_ITS ---
Exam(s) XR DEXA BONE DENSITY W/WO KAREN EXAM: XR DEXA BONE DENSITY W/WO KAREN CLINICAL HISTORY: BREAST CANCER C50.912 Z17.0, USE OF AROMATASE INHIBITOR Z79.811 TECHNIQUE: On[employer] Horizon C densitometer COMPARISON: DX XR DEXA BONE DENSITY W/WO KAREN from 01/28/2018 and 2005 FINDINGS: Lateral view of the thoracic and lumbar spine shows no evidence of compression fractures. Bone mineral density measurements of the lumbar spine correspond to a total T-score of 0.3, in the n ormal range. Not significantly changed from 2018. 10.3 percent decrease in total bone density of 10 .3 percent. Bone mineral density measurements of the left hip correspond to a total T-score of 0.9. The femoral neck T-score is -0.7, in the normal range. Not significantly changed from 2017. 8.4 percent decre ase from 2005.. The left forearm bone mineral density measurements correspond to a T-score of the distal 3rd of 0.2, in the normal range. 3.6 percent decrease from 2017. Forearm was not analyzed in 2005. IMPRESSION: Normal bone mineral density of the lumbar spine, left hip and left forearm.
== END 2021-03-23 02:56 ==
PROVIDERS: Visit Provider Nurse Practitioner Family
DX: Z13.820 Encounter for screening for osteoporosis (principal); Z79.811 Long term (current) use of aromatase inhibitors; C50.912 Malignant neoplasm of unspecified site of left female breast; Z17.0 Estrogen receptor positive status [ER+]
CPT/HCPCS: 77080

== ENCOUNTER 2021-05-03 01:09 | Outpatient (CLI) | payer MEDICARE, BC, SELFPAY ==
--- NOTE | 2021-05-03 | DI.CT_ITS ---
Exam(s) CT CHEST/ABD/PEL W EXAM: CT CHEST/ABD/PEL W CLINICAL HISTORY: LT BREAST CA,C50.912,F/U PULMONARY NODULES,HYPODENSE AREA LIVER,COMPARE TO. TECHNIQUE: Imaging Protocol: Axial computed tomography images with coronal and sagittal reformatted images were created and reviewed CONTRAST MATERIAL: Intravenous: Omnipaque 350 Contrast volume:100 ml Oral: yes / COMPARISON: CT CT CHEST WO from 06/01/[address] CHEST/ABD/PEL W from 11/28/2020 FINDINGS: CHEST: Tracheobronchial tree: Patent where visualized. Mediastinum and Chikis: No dominant adenopathy or fluid collection. Pulmonary parenchyma: Stable 7 millimeter nodule right lower lobe. Stable 5 millimeter nodule latera l right lower lobe. Stable nodule medial right upper lobe. Decreased post radiation changes in the anterior left lung. No consolidation or dominant measurable mass. Pleura: No effusion or pneumothorax. Lymph nodes: Within normal limits. Aorta: Thoracic portion non-dilated. The venous atherosclerotic changes. Heart: Normal size. Bones: Unremarkable for age. No lytic or blastic lesions. Soft tissues: Left breast skin thickening. Surgical clips in the posterior inferior left breast with adjacent seroma, unchanged. ABDOMEN: Liver: Normal density. Stable cysts. Stable size and appearance of low-density liver lesion posterio r right lobe measured at 15 millimeters on today's exam. Gallbladder and biliary tract: No radiodense calculus or dilation. Pancreas: Normal density, no abnormal calcifications or inflammatory process. Spleen: Normal. Kidneys: Normal size, contour and axis. Duplex collecting system left kidney. Tiny nonobstructing s tone upper pole left kidney. No radiodense stones or obstructive uropathy. No masses seen. Multiple small cysts. Adrenal glands: No masses seen. Aorta: Abdominal portion non-dilated. Mild atherosclerotic changes. Lymph nodes: Within normal limits. Soft tissues: Unremarkable. PELVIS: Bladder: Symmetric distention, no gross wall thickening. Bowel: No obstruction or bowel wall thickening. Peritoneal cavity: No ascites, collection or mesenteric inflammatory response. Bones: Degenerative disc changes at L L5-S1. No lytic or blastic lesions. Reproductive organs: Within normal limits. IMPRESSION: Stable lung nodules, the largest measuring 7 millimeters in the right lower lobe. Stable liver cysts. Stable low-attenuation lesion posterior right lobe of the liver. Post radiation and postsurgical changes of the left breast. No new findings. RADIATION DOSE DELIVERED: 1,724.85mGy.cm Total DLP DATA REPOSITORY: All CT scans at this facility are submitted to the National Radiology Data Registry (NRDR) Dose Index Registry (DIR) with the [employer] (ACR). RADIATION OPTIMIZATION: All CT scans at this facility use at least one of these dose optimization te chniques: automated exposure control; mA and/or kV adjustment per patient size (includes targeted exa ms where dose is matched to clinical indication); or iterative reconstruction.
[2021-05-03 12:02] LABS: ALT 32 U/L (14-59); AST 20 U/L (15-37); Albumin 3.7 g/dL (3.4-5.0); Alkaline Phosphatase 80 U/L (46-116); Anion Gap 10.5 mmol/L (3-11); BUN 17 mg/dL (7-18); Bilirubin, Total 0.3 mg/dL (0.2-1.0); CO2 28.5 mmol/L (21.0-32.0); CREATININE 0.8 mg/dL (0.55-1.02); Calcium 8.5 mg/dL (8.5-10.1); Chloride 103 mmol/L (98-107); Glucose 93 mg/dL (74-106); Potassium 3.8 mmol/L (3.5-5.1); Sodium 142 mmol/L (136-145); Total Protein 7.3 g/dL (6.4-8.2)
== END 2021-05-03 01:29 ==
PROVIDERS: Visit Provider Nurse Practitioner Family
DX: R91.1 Solitary pulmonary nodule (principal); Z92.3 Personal history of irradiation; C50.912 Malignant neoplasm of unspecified site of left female breast; K76.89 Other specified diseases of liver; N20.0 Calculus of kidney; Z17.0 Estrogen receptor positive status [ER+]; Z79.811 Long term (current) use of aromatase inhibitors; R91.8 Other nonspecific abnormal finding of lung field
CPT/HCPCS: 74177; 80053; 71260

== ENCOUNTER 2021-05-11 02:54 | Outpatient (CLI) | payer MEDICARE, BC, SELFPAY ==
[2021-05-11 14:55] LABS: ALT 32 U/L (14-59); AST 24 U/L (15-37); Albumin 3.9 g/dL (3.4-5.0); Alkaline Phosphatase 83 U/L (46-116); Anion Gap 8.1 mmol/L (3-11); BUN 15 mg/dL (7-18); Bilirubin, Total 0.3 mg/dL (0.2-1.0); CO2 28.9 mmol/L (21.0-32.0); CREATININE 0.9 mg/dL (0.55-1.02); Calcium 8.8 mg/dL (8.5-10.1); Chloride 100 mmol/L (98-107); Glucose 92 mg/dL (74-106); Potassium 3.8 mmol/L (3.5-5.1); Sodium 137 mmol/L (136-145); Total Protein 7.7 g/dL (6.4-8.2)
[2021-05-11 15:34] LABS: Abs Immature Grans 0.02 10^3/uL (0.0-0.06); Absolute Basophil Count 0.02 10^3/uL (0.0-0.2); Absolute Eosinophil Count 0.03 10^3/uL (0.0-0.7); Absolute Lymphocyte Count 1.42 10^3/uL (1.2-3.4); Absolute Monocyte Count 0.41 10^3/uL (0.1-0.8); Absolute Neutrophil Count 2.71 10^3/uL (1.2-6.7); Basophils % 0.4; Eosinophils % 0.7; HCT 37.7 % (36.0-46.0); HGB 12.5 g/dL (11.2-15.7); Immature Grans % 0.4; Lymphocytes % 30.8; MCH 30.8 pg (27.0-33.0); MCHC 33.2 % (32.0-36.0); MCV 92.9 fL (80-95); MPV 9.6 fL (8.0-11.0); Monocytes % 8.9; Neutrophils % 58.8; Nucleated RBC 0 %; Platelet Count 183 10^3/uL (130-400); RBC 4.06 10^6/uL (3.93-5.22); RDW 12.5 % (11.7-14.6); RDW-SD 42.8 fL; WBC 4.61 10^3/uL (4.4-10.8)
== END 2021-05-11 02:55 | disposition home or self-care (01) ==
LOC: LBO 02:54
PROVIDERS: Visit Provider Internal Medicine Hematology & Oncology
DX: C50.812 Malignant neoplasm of overlapping sites of left female breast (principal); Z17.0 Estrogen receptor positive status [ER+]
CPT/HCPCS: 36415; 80053; 85025

== ENCOUNTER 2021-11-20 13:48 | Outpatient (REF) | payer MEDICARE, BC, SELFPAY ==
--- NOTE | 2021-11-20 13:30 | PAPFT_PTH ---
PATIENT: Carolina Tom LOC: [facility] U#:[id number] AGE/SX: 71/F ROOM: RE11/20/[address]: Ivis Herrera : 1950 BED: DIS: 11/20/2021 SPEC #: [id number] RECD: 11/20/21 18:51 STATUS: DANNI RELuis #: [id number] CICI: 11/20/21 13:[address]: Ivis Herrera DEPT: [facility] Cytology RECD BY: Makenna Collado ENTERED: 11/20/21 18:51 SP TYPE: PAPFT FRANCESCA DR: Mary Murray, PhD DIETETIC TECHNICIAN REGISTERED Tissues: 1 - CX/ENDOCX FOR PAP SMEARS Procedures: PAP THIN PREP/UVM Screening HPV DNA PROBE Comments: [id number]
== END 2021-11-20 13:49 | disposition home or self-care (01) ==
LOC: LBN 13:48
PROVIDERS: PCP Nurse Practitioner; Visit Provider Obstetrics & Gynecology Gynecology
DX: Z12.4 Encounter for screening for malignant neoplasm of cervix (principal); Z11.51 Encounter for screening for human papillomavirus (HPV); Z01.419 Encounter for gynecological examination (general) (routine) without abnormal findings
CPT/HCPCS: 88142; 87624

== ENCOUNTER → 2022-01-15 01:55 | Outpatient (CLI) | payer MEDICARE, BC, SELFPAY ==
--- NOTE | 2022-01-15 07:00 | DI.RAD_ITS ---
Exam(s) XR ANKLE LT COMPLETE EXAM: XR ANKLE LT COMPLETE CLINICAL HISTORY: Fall with injury/swelling S99.919A INJURY ANKLE TECHNIQUE: 2D digital imaging was performed of the left ankle. Three images were obtained. AP, lat eral and oblique views were obtained. COMPARISON: No exams were available for comparison FINDINGS: BONES: No acute fracture is present. No bony destructive lesion is seen. JOINTS:The ankle mortise is normally aligned. SOFT TISSUE: Normal. IMPRESSION: Unremarkable radiographs of the left ankle. DATA REPOSITORY: RADIATION DOSE DELIVERED:
== END ==
PROVIDERS: PCP Nurse Practitioner; Visit Provider Nurse Practitioner Family
DX: S99.912A Unspecified injury of left ankle, initial encounter (principal); X58.XXXA Exposure to other specified factors, initial encounter
CPT/HCPCS: 73610

== ENCOUNTER 2022-01-15 14:20 | Outpatient (CLI) | payer MEDICARE, BC, SELFPAY ==
[2022-01-16 10:25] LABS: Lyme Ab w Rflx to Lyme Confirm Negative (Negative)
[2022-01-17 19:06] LABS: Anaplasma phagocytophilum Negative (Negative); B. miyamotoi PCR Negative (Negative); Babesia divergens/MO-1 Negative (Negative); Babesia duncani Negative (Negative); Babesia microti Negative (Negative); Ehrlichia chaffeensis Negative (Negative); Ehrlichia ewingii/canis Negative (Negative); Ehrlichia muris eauclairensis Negative (Negative)
== END 2022-01-15 14:21 | disposition home or self-care (01) ==
LOC: LBO 14:31
PROVIDERS: PCP Nurse Practitioner; Visit Provider Nurse Practitioner Family
DX: M25.59 Pain in other specified joint (principal)
CPT/HCPCS: 36415; 87798; 73610; 86618

== ENCOUNTER → 2022-02-15 02:17 | Outpatient (CLI) | payer MEDICARE, BC, SELFPAY ==
--- NOTE | 2022-02-15 | DI.US_ITS ---
Exam(s) US BREAST LT LIMITED MG MAMMO SCREENING 60 MIN DUR EXAM: US BREAST LT LIMITED CLINICAL HISTORY: PER DR ARCHULETA - CALCIFICATIONS LEFT BREAST TECHNIQUE: Ultrasound performed using standard protocol. COMPARISON: No exams were available for comparison FINDINGS: The bilateral mammogram is interpreted in conjunction with additional mammographic views of the left breast and left breast ultrasound. The breasts are of moderate density. Prior left lumpectomy is noted in the upper outer quadrant of t he left breast. The current examination is compared with prior examinations including November 2020 . No dominant mass is identified in either breast. There are group of new very dense angie shaped calcifications seen in the upper outer quadrant of the l eft breast in the retroareolar region, about 4-5 cm behind the nipple. These are likely to be benign and represent dystrophic or secretory calcifications. Possibility of malignancy is not absolutely e xcluded, follow-up left breast mammogram suggested in 6 months to re-evaluate these calcifications. I would note that ultrasound examination of the retroareolar portion of the breast shows some small a reas of shadowing in approximately the 4 o'clock position which could be associated with these small calcifications, no mass identified in this area. IMPRESSION: No specific evidence of malignancy, however new probably benign calcifications are noted which should be re-evaluated with left breast mammogram and left breast ultrasound in 6 months. BI-RADS Cat 3 - 6 month - Probably Benign Finding: Recommend follow-up imaging in 6 months Breast Density - Category B - Scattered areas of fibroglandular density DATA REPOSITORY:
== END ==
PROVIDERS: PCP Nurse Practitioner Family; Visit Provider Radiology Radiation Oncology
DX: R92.8 Other abnormal and inconclusive findings on diagnostic imaging of breast (principal); Z12.31 Encounter for screening mammogram for malignant neoplasm of breast
CPT/HCPCS: 76642; 77063; 77067

== ENCOUNTER 2022-03-27 13:17 | Emergency (ER) | payer MEDICARE, BC, SELFPAY ==
[2022-03-27] VITALS (33 sets, daily range): BP systolic 149–184; BP diastolic 72–80; PULSE 61–80; RESP 13–23; TEMP 36.6; O2SAT 93–98
--- NOTE | 2022-03-27 13:15 | RT.EKG_ITS ---
APPROVED REPORT Exam: Resting ECG Reason for Exam: chest pain Patient Location: E HR:73 bpm ECG Measurements Heart Rate 73 AXIS SD 178 P 52 QRSd 79 QRS 60 QT 392 T 55 QTc 433 Conclusion Sinus rhythm...normal P axis, V-rate 60- 99
[2022-03-27 13:41] LABS: Abs Immature Grans 0.03 10^3/uL (0.0-0.06); Absolute Basophil Count 0.03 10^3/uL (0.0-0.2); Absolute Eosinophil Count 0.12 10^3/uL (0.0-0.7); Absolute Lymphocyte Count 1.85 10^3/uL (1.2-3.4); Absolute Monocyte Count 0.52 10^3/uL (0.1-0.8); Absolute Neutrophil Count 3.01 10^3/uL (1.2-6.7); Basophils % 0.5; Eosinophils % 2.2; HCT 37.4 % (36.0-46.0); HGB 12.9 g/dL (11.2-15.7); Immature Grans % 0.5; Lymphocytes % 33.3; MCH 31.2 pg (27.0-33.0); MCHC 34.5 % (32.0-36.0); MCV 90 fL (80-95); MPV 9.7 fL (8.0-11.0); Monocytes % 9.4; Neutrophils % 54.1; Platelet Count 189 10^3/uL (130-400); RBC 4.14 10^6/uL (3.93-5.22); RDW 12.3 % (11.7-14.6); RDW-SD 40.3 fL; WBC 5.56 10^3/uL (4.4-10.8)
--- NOTE | 2022-03-27 13:45 | DI.RAD_ITS ---
Exam(s) XR CHEST 2V PA LATERAL EXAM: XR CHEST 2V PA LATERAL CLINICAL HISTORY: Chest pain. TECHNIQUE: 2D digital imaging was performed. COMPARISON: CR XR CHEST 2V PA LATERAL from 01/11/2020 FINDINGS: 2 views: Heart size is normal. The mediastinum is not widened. Lungs are clear. No infiltrates nor pleural effusions. Surgical clips are noted over the left breast area. These were not evident on the prior chest x-ray of December 2019. IMPRESSION: No acute pulmonary findings. DATA REPOSITORY: RADIATION DOSE DELIVERED:
--- NOTE | 2022-03-27 13:55 | W.ED.GENAD ---
Discharge Plan Disposition Patient Disposition: Home Condition: Improving Discharge Details Clinical Impression: Chest pain, Elevated BP without diagnosis of hypertension Primary Care Provider: Elmer Martinez ED Provider: Sagar Solis Home Meds and New Rx's Prescriptions: Continued cholecalciferol (vitamin D3) 50 mcg (2,000 unit) capsule 50 mcg PO DAILY oregano oil 1,500 mg capsule PO exemestane 25 mg tablet 25 mg PO DAILY Rx Instructions: must administer after a meal CardioVid PLUS 1 EACH capsule 1 ea PO DAILY Daily Multiple 1 EACH tablet 1 tab-cap PO DAILY Discharge Instructions Instructions: Chest Pain (ED), Hypertension (ED) Additional Instructions: Your emergency department work-up was nondiagnostic at this time for specific cause of your chest pain. While this shows no emergent findings at time of assessment if you develop any new or significant worsening of symptoms feel free to return to the emergency department for recheck of your symptoms. Otherwise it is recommended that you follow-up with your primary care provider preferably later this week for reassessment and consideration of further outpatient testing. Referrals: Elmer Martinez NP [Primary Care Provider] - 3 days (For reassessment of your chest pain and consideration of further outpatient testing) Discharge Data Discharge Date/Time-TO BE ENTERED AT DEPARTURE: 03/27/22 17:49 Medical Decision Making <Shivani Taylor NP - Last Filed: 03/29/22 08:38> 72-year-old female presents to the ER with chief complaint of midsternal chest pain which radiates in between her shoulder blades she reports it as stabbing which has been ongoing for the last 3 days. She reports it comes and goes and is present at rest. She denies any shortness of breath no leg swelling no nausea vomiting denies any recent long trips in a car plane or any other associated symptoms. She does have a past medical history of hyperlipidemia and breast cancer Cardiac work-up ordered including serial troponin, chest x-ray and 324 of aspirin. EKG was reviewed by Dr. Kandice Fields ER attending, please see his official report old EKG is available for review. Care is to be handed off to oncoming provider Pernell Solis NP pending CTA chest and repeat troponin. On patient reevaluation she is chest pain-free alert and oriented breathing eupneic. She is in agreement with the plan. ND 1600-patient signed out to me pending second troponin and CTA of chest. Please see previous documentation for initial work-up by Shivani Taylor NP. Just prior to signout was reported the patient is pain-free and resting comfortably in room. We will continue to monitor patient. Lab Data Lab results reviewed: Yes I reviewed the patient's lab results. Labs: Laboratory Tests Range/Units 03/27/22 03/27/22 13:30 13:30 WBC (4.4-10.8) 10^3/uL 5.56 RBC (3.93-5.22) 10^6/uL 4.14 Hgb (11.2-15.7) g/dL 12.9 Hct (36.0-46.0) % 37.4 MCV (80-95) fL 90 MCH (27.0-33.0) pg 31.2 MCHC (32.0-36.0) % 34.5 RDW (11.7-14.6) % 12.3 Plt Count (130-400) 10^3/uL 189 MPV (8.0-11.0) fL 9.7 Immature Gran % 0.5 Neutrophils % 54.1 Lymphocytes % 33.3 Monocytes % 9.4 Eosinophils % 2.2 Basophils % 0.5 Nucleated RBC % (0.0-0.3) % 0.0 Absolute Neutrophils (1.2-6.7) 10^3/uL 3.01 Absolute Lymphocytes (1.2-3.4) 10^3/uL 1.85 Absolute Monocytes (0.1-0.8) 10^3/uL 0.52 Absolute Eosinophils (0.0-0.7) 10^3/uL 0.12 Absolute Basophils (0.0-0.2) 10^3/uL 0.03 Sodium (136-145) mmol/L 141 Potassium (3.5-5.1) mmol/L 3.7 Chloride (98-107) mmol/L 104 Carbon Dioxide (21.0-32.0) mmol/L 27.6 Anion Gap (3-11) mmol/L 9.4 BUN (7-18) mg/dL 21 H Creatinine (0.55-1.02) mg/dL 1.0 Est GFR (CKD-EPI 2020) (mL/min/1.73m2) 59.86 Glucose (74-106) mg/dL 100 Calcium (8.5-10.1) mg/dL 8.9 Magnesium (1.8-2.4) mg/dL 2.0 Total Bilirubin (0.2-1.0) mg/dL 0.2 AST (15-37) U/L 23 ALT (14-59) U/L 29 Alkaline Phosphatase (46-116) U/L 80 Troponin I (<or=60) ng/L < 50 Total Protein (6.4-8.2) g/dL 7.6 Albumin (3.4-5.0) g/dL 3.9 <Sagar Solis NP - Last Filed: 03/27/22 21:45> 72-year-old female presents to the ER with chief complaint of midsternal chest pain which radiates in between her shoulder blades she reports it as stabbing which has been ongoing for the last 3 days. She reports it comes and goes and is present at rest. She denies any shortness of breath no leg swelling no nausea vomiting denies any recent long trips in a car plane or any other associated symptoms. She does have a past medical history of hyperlipidemia and breast cancer Cardiac work-up ordered including serial troponin, chest x-ray and 324 of aspirin. EKG was reviewed by Dr. Kandice Fields ER attending, please see his official report old EKG is available for review. Care is to be handed off to oncoming provider Pernell Solis NP pending CTA chest and repeat troponin. On patient reevaluation she is chest pain-free alert and oriented breathing eupneic. She is in agreement with the plan. ND 1600-patient signed out to me pending second troponin and CTA of chest. Please see previous documentation for initial work-up by Shivani Taylor NP. Just prior to signout was reported the patient is pain-free and resting comfortably in room. We will continue to monitor patient. 1655-received report from radiologist that no worrisome pulmonary findings were noted. Changes related to patient's previous radiation were mentioned along with stable hepatic findings that are not new. We will continue to monitor patient pending delta troponin. Delta troponin is unremarkable. Please see physician interpretation for full interpretation of repeat EKG but patient has sinus rhythm, rate of 61, no findings to suggest acute STEMI. Reassessed patient and patient remains pain-free. Patient was noted to have continued elevated blood pressure but again otherwise she is asymptomatic. Discussed with patient risk versus benefit of of staying for further inpatient work-up but given no cardiac history, not a smoker, and only risk factor is age and hyperlipidemia decided to discharge patient with follow-up to primary care for consideration of stress testing. Patient is agreeable to this plan of care and states she would prefer to go home as well. After discussion of diagnosis and plan of care patient has no further needs, questions, or concerns and states clear understanding to return to the emergency department for any worsening symptoms. This documentation was generated using [employer] dictation system, please disregard any oddities of phrase or misspellings. Imaging Data Radiologic Study: Imaging: CT Scan Radiologist's impression: Exam(s) a CT:CT chest PE CTA Exam(s) CT CHEST PE CTA EXAM: CT CHEST PE CTA CLINICAL HISTORY: Chest Pain, R/O PE. TECHNIQUE: Imaging Protocol: CT angiography of the chest was performed using pulmonary embolus protocol. Multi planar reconstructions were performed. CONTRAST MATERIAL: Intravenous: Omnipaque 350 Contrast volume: 100 cc COMPARISON: CT CT CHEST/ABD/PEL W from 05/03/2021 FINDINGS: CHEST: PULMONARY ARTERIES: There are no intraluminal filling defects to suggest acute pulmonary emboli. LUNGS: There are no infiltrates nor evidence of pulmonary infarction.. There are no pleural effusions. MEDIASTINUM: No hilar nor mediastinal adenopathy. Visualized thyroid unremarkable. CARDIAC: Heart size is upper normal. There is no pericardial effusion.Caliber of the thoracic aorta is within normal limits. There is no significant shift of the interventricular septum. PARTIALLY VISUALIZED UPPERMOST ABDOMEN: Unchanged cyst in the right hepatic lobe are again noted. In addition, there is a less cystic appearing hypodensity in the medial right hepatic lobe which also appears unchanged. OSSEOUS: No significant osseous lesions.. OTHER: There is significant skin thickening over a large part of the mid-lower left breast. This may be related to prior radiation therapy is there has been prior left breast surgery with surgical clips noted posteriorly in the breast. IMPRESSION: 1. No evidence of acute pulmonary emboli. No evidence of pulmonary infarction. No infiltrates. No pleural effusions. No intrathoracic adenopathy. 2. Stable appearance of the previously described hepatic findings. 3. Left breast skin thickening which is most probably post radiation as there are surgical clips in the left breast also noted. HPI <Shivani Taylor NP - Last Filed: 03/29/22 08:38> General Mode of arrival: ambulatory. Date/Time Provider Initiated Documentation: 03/27/22 13:17. Limitations to Documentation: no limitations. Information obtained by: patient, RN notes reviewed and old records reviewed. HPI Narrative: 72-year-old female presents to the ER with chief complaint of midsternal chest pain which radiates in between her shoulder blades she reports it as stabbing which has been ongoing for the last 3 days. She reports it comes and goes and is present at rest. She denies any shortness of breath no leg swelling no nausea vomiting denies any recent long trips in a car plane or any other associated symptoms. She does have a past medical history of hyperlipidemia and breast cancer and a lumpectomy on the left. She is taking hormone replacement therapy for this. She does not take aspirin daily. Related Data Home Medications Medication Instructions Recorded Confirmed omega [id number]-tegi oil 600 1 ea PO DAILY 10/06/12 03/27/22 mg-20 mg-500 mcg-800 mcg capsule (CardioVid PLUS) multivitamin-ferrous 1 tab-cap PO DAILY 11/18/12 03/27/22 fumarate-folic acid 18 mg-400 mcg tablet (Daily Multiple) exemestane 25 mg tablet 25 mg PO DAILY 10/04/20 03/27/22 cholecalciferol (vitamin D3) 50 50 mcg PO DAILY 11/20/21 03/27/22 mcg (2,000 unit) capsule oregano oil 1,500 mg capsule mg PO 11/20/21 01/12/22 Allergies Allergy/AdvReac Type Severity Reaction Status Date / Time No Known Allergies Allergy Unverified 03/27/22 13:29 General Stated Complaint: Chest Pain YORDAN: 2 Review of Systems <Shivani aTylor NP - Last Filed: 03/29/22 08:38> All systems reviewed & are unremarkable except as noted in HPI and below Cardiovascular Cardiovascular: Reports chest pain, Reports chest pain at rest, Denies pedal edema, Denies leg edema, Reports radiating jaw, neck or arm pain (Radiates in between shoulder blades to the back) and Denies dyspnea Respiratory Respiratory: Denies dyspnea Gastrointestinal Gastrointestinal: Denies abdominal pain, Denies melena, Denies hematochezia, Denies heartburn, Denies diarrhea, Denies nausea and Denies vomiting PFSH <Shivani Taylor NP - Last Filed: 03/29/22 08:38> All Active Problems (Updated 03/27/22 @ 17:32 by Sagar Solis NP) Chest pain (Acute) Elevated BP without diagnosis of hypertension (Acute) Foot pain (Acute) Corns and callosities (Acute) Ankle sprain (Acute) Ankle injury (Acute) Arthralgia (Acute) Nodule of kidney (Acute) 11/2020- [facility] [place] [place] following- rec MRI 6 months Liver nodule (Acute) 11/2020- [facility] [place] [place] following- rec for 6 month f/u MRI Tendonitis of left rotator cuff (Acute) Bursitis of left shoulder (Acute) H/O adenomatous polyp of colon (Acute) Tinnitus, bilateral (Acute 06/30/15) Solar lentigo (Acute) Followed by [facility] [place] [place]-- seen yearly Shoulder pain (Acute) left shoulder Seborrheic dermatitis (Acute 06/30/15) Sleep disturbance, unspecified (Acute) difficulty staying asleep Hyperlipidemia (Acute) does not want a statin Breast cancer (Chronic) left breast- ductal adenocarcinoma 12/2019- genetic testing negative for mutations 12/2019- margins clear, lymph nodes neg 01/2020- radiation tx [facility] [place] [place], T1N0 tunor ER positive, considering endocrine chemo No transfusions per holiness beliefs (Acute) Medical History (Updated 03/27/22 @ 17:32 by Sagar Solis NP) Fatty liver Hyperlipidemia Renal calculi non- obstructing Tinnitus Vertigo Surgical History (Updated 02/09/20 @ 13:48 by Sheila Fernandez MD) Excisional biopsy of left forearm mass (02/08/15) Ligation of fallopian tube (~1977) Status post left breast lumpectomy Family History Mother , Heart attack at age 51. Myocardial infarction Emphysema of lung Asthma Father , OLD AGE at age 74. Dementia Heart disease Myocardial infarction Sister Diabetes Heart disease Sister , Breast CA at age 74. Breast cancer Diagnosed at 65yrs old; metastasized Asthma Sister No problems noted. Brother , Lung Cancer at age 62. Diabetes Lung cancer Brother Diabetes Heart disease Brother , Lung cancer at age 66. Heart disease Lung cancer Brother Diabetes Brother Heart disease Maternal Grandfather , 80 No problems noted. Paternal Grandfather Cancer Maternal Grandmother , Ovarian Cancer at age 78. Ovarian cancer Paternal Grandmother No problems noted. Daughter No problems noted. Social History (Updated 11/20/21 @ 20:16 by Ivis Herrera MD) Smoking/Tobacco Use Status: Never Smoking risk assessment performed?: Yes Alcohol Intake: never Counseling given: Yes Drug use: Never Substance use type: does not use Caregiver/Support person: No Household members: none and other Details: spouse - Glioblastoma Housing: other Details: moved into son's house. Adding additional master bath. Number of Children: 2 Do you need help understanding health information?: Never current occupation: retired. Pets and animals: No Sexually active: No Current gender identity: female What is your relationship status?: How often do you talk on the phone with friends or family?: three or more times per week How often do you get together with friends or relatives?: decline to answer How often do you attend hoahaoism or holiness services?: decline to answer Do you belong to any clubs or organized social groups?: no Panel score (0-1 are the most socially isolated patients): 1 What type of physical activity do you participate in: decline to answer Duration: decline to answer Frequency: decline to answer Haven/Congregational: Episcopal Special haven needs: No Seatbelt use: always Drive intox or ride w/intox 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 Suicide 2017 Female Reproductive History Menstrual Menopause type: natural History History 2 Para 2 Hx # Term Pregnancies Multiple births Hx # Pregnancies Ectopic pregnancies AB induced Hx Number of Living Children AB spontaneous Exam <Shivani Taylor NP - Last Filed: 03/29/22 08:38> Narrative Exam Narrative: Constitutional: Alert and oriented x3. Appears stated age. Normal body habitus. Head: Normocephalic, no trauma. Eyes: Pupils PERRL, Red reflex noted, EOM's intact. Eyelids symmetrical without lesions, discharge, or swelling. ENT: External ear normal to inspection, no mastoid TTP, swelling, or erythema, Nasal turbinates WNL, no nasal discharge. Normal dentition Chest: RRR, Normal S1, S2, distal pulses intact. No rubs murmurs or gallops auscultated. Resp: Lungs clear to auscultation bilaterally, no wheezes, rales, or rhonchi. Abdomen: Soft, non-distended, Normoactive bowel sounds all 4 quads. Musculoskeletal: Normal gait, 5/5 strength to all four extremities. Skin: No suspicious rashes or lesions. Capillary refill less than 2 sec. Neurologic: Cranial nerves II-XII intact. Alert and oriented x 3. Motor: No deficits noted. Hematologic/Lymphatic: No ecchymosis, no lymphadenopathy. Course <Shivani Taylor NP - Last Filed: 03/29/22 08:38> Vital Signs Vital signs: Vital Signs Temperature 36.6 C 03/27/22 13:23 Pulse 75 03/27/22 13:23 Respiratory Rate 22 03/27/22 13:23 Blood Pressure 173/80 H 03/27/22 13:23 Pulse Oximetry 98 03/27/22 13:23 Temperature 36.6 C 03/27/22 13:23 Temperature Source Temporal Artery Scan 03/27/22 13:23 Pulse 68 03/27/22 13:36 Pulse 70 03/27/22 13:40 Respiratory Rate 17 03/27/22 13:40 Respiratory Effort 03/27/22 13:43 Blood Pressure 159/72 H 03/27/22 13:36 Blood Pressure Mean 95 03/27/22 13:36 Blood Pressure Position Sitting 03/27/22 13:23 Pulse Oximetry 96 03/27/22 13:40 Oxygen Delivery Method Room Air 03/27/22 13:23 Oxygen Flow Rate 0 03/27/22 13:23 Pain Level 7 03/27/22 13:23 Lab/Test Results Lab/Test Results: Laboratory Tests Range/Units 03/27/22 13:30 WBC (4.4-10.8) 10^3/uL 5.56 RBC (3.93-5.22) 10^6/uL 4.14 Hgb (11.2-15.7) g/dL 12.9 Hct (36.0-46.0) % 37.4 MCV (80-95) fL 90 MCH (27.0-33.0) pg 31.2 MCHC (32.0-36.0) % 34.5 RDW (11.7-14.6) % 12.3 Plt Count (130-400) 10^3/uL 189 MPV (8.0-11.0) fL 9.7 Immature Gran % 0.5 Neutrophils % 54.1 Lymphocytes % 33.3 Monocytes % 9.4 Eosinophils % 2.2 Basophils % 0.5 Nucleated RBC % (0.0-0.3) % 0.0 Absolute Neutrophils (1.2-6.7) 10^3/uL 3.01 Absolute Lymphocytes (1.2-3.4) 10^3/uL 1.85 Absolute Monocytes (0.1-0.8) 10^3/uL 0.52 Absolute Eosinophils (0.0-0.7) 10^3/uL 0.12 Absolute Basophils (0.0-0.2) 10^3/uL 0.03 Sign Out <Shivani Taylor NP - Last Filed: 03/29/22 08:38> Sign Out Data: Sign Out Comment: Chest pain sharp stabbing radiates into the back x3 days, initial troponin within normal limits EKG within normal limits, pending repeat troponin approximately [address] chest. Last updated by Shivani Taylor NP at 03/27/22 15:45
[2022-03-27 14:01] LABS: ALT 29 U/L (14-59); AST 23 U/L (15-37); Albumin 3.9 g/dL (3.4-5.0); Alkaline Phosphatase 80 U/L (46-116); Anion Gap 9.4 mmol/L (3-11); BUN 21 mg/dL (7-18); Bilirubin, Total 0.2 mg/dL (0.2-1.0); CO2 27.6 mmol/L (21.0-32.0); Calcium 8.9 mg/dL (8.5-10.1); Chloride 104 mmol/L (98-107); Estimated GFR 59.86 (mL/min/1.73m2); Glucose 100 mg/dL (74-106); Potassium 3.7 mmol/L (3.5-5.1); Sodium 141 mmol/L (136-145); Total Protein 7.6 g/dL (6.4-8.2); Troponin I < 50 ng/L (<or=60)
[2022-03-27] MEDS: Aspirin 81 MG CHEW 324 MG CH (14:06)
--- NOTE | 2022-03-27 15:45 | DI.CT_ITS ---
Exam(s) CT CHEST PE CTA EXAM: CT CHEST PE CTA CLINICAL HISTORY: Chest Pain, R/O PE. TECHNIQUE: Imaging Protocol: CT angiography of the chest was performed using pulmonary embolus maria del rosario col. Multi planar reconstructions were performed. CONTRAST MATERIAL: Intravenous: Omnipaque 350 Contrast volume: 100 cc COMPARISON: CT CT CHEST/ABD/PEL W from 05/03/2021 FINDINGS: CHEST: PULMONARY ARTERIES: There are no intraluminal filling defects to suggest acute pulmonary emboli. LUNGS: There are no infiltrates nor evidence of pulmonary infarction.. There are no pleural effusions . MEDIASTINUM: No hilar nor mediastinal adenopathy. Visualized thyroid unremarkable. CARDIAC: Heart size is upper normal. There is no pericardial effusion.Caliber of the thoracic aorta is within normal limits. There is no significant shift of the interventricular septum. PARTIALLY VISUALIZED UPPERMOST ABDOMEN: Unchanged cyst in the right hepatic lobe are again noted. In addition, there is a less cystic appearing hypodensity in the medial right hepatic lobe which also a ppears unchanged. OSSEOUS: No significant osseous lesions.. OTHER: There is significant skin thickening over a large part of the mid-lower left breast. This may be related to prior radiation therapy is there has been prior left breast surgery with surgical clip s noted posteriorly in the breast. IMPRESSION: 1. No evidence of acute pulmonary emboli. No evidence of pulmonary infarction. No infiltrates. No pleural effusions. No intrathoracic adenopathy. 2. Stable appearance of the previously described hepatic findings. 3. Left breast skin thickening which is most probably post radiation as there are surgical clips in t he left breast also noted. Called by myself to ER RADIATION DOSE DELIVERED: 406.39mGy.cm Total DLP DATA REPOSITORY: All CT scans at this facility are submitted to the National Radiology Data Registry (NRDR) Dose Index Registry (DIR) with the [employer] (ACR). RADIATION OPTIMIZATION: All CT scans at this facility use at least one of these dose optimization te chniques: automated exposure control; mA and/or kV adjustment per patient size (includes targeted exa ms where dose is matched to clinical indication); or iterative reconstruction.
--- NOTE | 2022-03-27 16:15 | RT.EKG_ITS ---
APPROVED REPORT Exam: Resting ECG Reason for Exam: REPEAT Patient Location: E HR:61 bpm ECG Measurements Heart Rate 61 AXIS MS 189 P 44 QRSd 80 QRS 53 QT 431 T 66 QTc 434 Conclusion Sinus rhythm...normal P axis, V-rate 60- 99
[2022-03-27] MEDS: Omnipaque 350 MG/ML 100 ML BTL IJ (16:25)
[2022-03-27 17:15] LABS: Troponin I < 50 ng/L (<or=60)
--- NOTE | 2022-03-27 18:25 | NUR.NOTE ---
Nursing Note: REFERRAL TO CM FOR PCP FOLOW UP, CONSIDER STRESS TEST
== END 2022-03-27 17:49 | disposition home or self-care (01) ==
PROVIDERS: Registered Nurse Emergency; Emergency Provider Nurse Practitioner Family; PCP Nurse Practitioner Family
DX: R07.2 Precordial pain (principal); R03.0 Elevated blood-pressure reading, without diagnosis of hypertension
CPT/HCPCS: 36415; 71275; 80053; 93005; 99285; 71046; 83735; 84484; 85025; 93010; J3490

== ENCOUNTER 2022-08-23 02:10 | Outpatient (CLI) | payer MEDICARE, BC, SELFPAY ==
--- NOTE | 2022-08-23 09:30 | DI.MAMMO_ITS ---
Exam(s) US BREAST LT COMPLETE MG MAMMO DIAGNOSTIC UNI EXAM: MG MAMMO DIAGNOSTIC UNI and U/S breast LT complete CLINICAL HISTORY: BREAST CALCIFICATIONS ON MAMMO, R92.1. TECHNIQUE: Craniocaudal and mediolateral oblique Full Field Digital Mammography views of the left br east with Computer Aided Diagnosis followed by Tomosynthesis and left breast ultrasound. COMPARISON: US US BREAST LT LIMITED from 02/15/2022 US US BREAST LT COMPLETE from 08/23/2022 FINDINGS: Mammography/Tomosynthesis: Masses/Architectural Distortion: The patient is status post left lumpectomy. No new areas of archite ctural distortion or masses are seen. Microcalcifictions: No suspicious pleomorphic-type are seen. There has been a small increase in numbe r of the calcifications in in the outer left breast. Skin Thickening/Nipple Retraction: None. Complete left breast US: Echotexture: Normal appearance of the glandular tissue. Shadowing: The shadowing echogenic area at 4 o'clock of the left breast is unchanged. Cyst: The thick-walled fluid collection at the 3 o'clock position 5 cm from the nipple is again seen. It shows slight decrease in size measuring 2.1 x 1.7 x 0.8 cm. This compares to 2.4 x 1.8 x 1.1 cm. Solid lesions: None seen. Ductal dilation: None. IMPRESSION: 1. No definite evidence for malignancy at this time. Slight increase in number of the calcifications in the central left breast. 2. A 3 month follow-up mammogram and ultrasound is requested for re-evaluation. 3. The findings were discussed with the patient on the date of the examination. BI-RADS Category 3 - Probably Benign Finding: Recommend follow-up imaging in 3 months Breast Density - Category B - Scattered areas of fibroglandular density Breast density Category C or D implies that the patient has dense breast tissue. Dense breast tissue can make it harder to find cancer on a mammogram. Dense breast tissue is also associated with an incr eased risk of breast cancer. This information about the result of the mammogram report was provided to the patient to raise their awareness. Use this report when you speak with the patient about their risks for breast cancer, which includes their family history. At that time, you may recommend additional screening tests (Ultrasoun d or MRI) as these tests may add significant information. A negative radiographic report should not delay biopsy if a dominant or clinically suspicious mass is present. Up to ten percent of cancers are not identified on mammography. A negative report may reinforce clinical impression. Adenosis and dense breasts may obscure an underlying neoplasm. False positive reports average 6 to 10%. Patient will receive a letter notifying them of these results.
== END 2022-08-23 02:30 ==
LOC: DI 02:10
PROVIDERS: PCP Nurse Practitioner Family; Visit Provider Radiology Radiation Oncology
DX: Z12.31 Encounter for screening mammogram for malignant neoplasm of breast (principal); R92.1 Mammographic calcification found on diagnostic imaging of breast
CPT/HCPCS: 76642; 77061; 77065; G0279

== ENCOUNTER → 2022-11-26 01:38 | Outpatient (CLI) | payer MEDICARE, BC, SELFPAY ==
--- NOTE | 2022-11-26 14:07 | DI.MAMMO_ITS ---
Exam(s) MAMMO DIAGNOSTIC UNI EXAM: MAMMO DIAGNOSTIC UNI CLINICAL HISTORY: BREAST CALCIFICATIONS R92.1 ABNL MAMMO R92.8 3 MO FU TECHNIQUE: Cc and MLO mammogram images were performed according to the usual protocol including computer analysis with CAD system, tomosynthesis and C-view imaging. COMPARISON: 2014 through 23 Aug 2022 FINDINGS: The left breast is composed of scattered fibroglandular densities, Breast Density category B. Patient is status post lumpectomy in the upper outer quadrant. Surgical clips are noted in this area . There are coarse calcifications seen in the lateral central breast which show further coarsening c ompared with prior exam and are likely related to post lumpectomy changes. IMPRESSION: BI-RADS Cat 2 - Benign Findings Bilateral screening mammography is due in January 2023. Breast Density - Category B, scattered fibroglandular densities. A negative radiographic report should not delay biopsy if a dominant or clinically suspicious mass is present. Up to ten percent of cancers are not identified on mammography. A negative report may reinforce clinical impression. Adenosis and dense breasts may obscure an underlying neoplasm. False positive reports average 6 to 10%. Patient will receive a letter notifying them of these results.
== END ==
PROVIDERS: PCP Nurse Practitioner Family; Visit Provider Radiology Radiation Oncology
DX: Z12.31 Encounter for screening mammogram for malignant neoplasm of breast (principal); R92.1 Mammographic calcification found on diagnostic imaging of breast
CPT/HCPCS: 77061; 77065; G0279

== ENCOUNTER 2023-01-05 16:08 | Outpatient (REF) | payer MEDICARE, BC, SELFPAY | END 2023-01-05 16:09 | disposition home or self-care (01) | LOC: LBN 16:08 | PROVIDERS: PCP Nurse Practitioner Family; Visit Provider Physician Assistant | DX: N39.0 Urinary tract infection, site not specified (principal) | CPT/HCPCS: 87077; 87086; 87186 ==

== ENCOUNTER → 2023-07-25 03:56 | Outpatient (CLI) | payer MEDICARE, BC, SELFPAY ==
--- NOTE | 2023-07-25 | DI.MAMMO_ITS ---
Exam(s) MG MAMMO SCREENING 60 MIN DUR EXAM: MG MAMMO SCREENING 60 MIN DUR CLINICAL HISTORY: SCREENING, RT BREAST CA,C50.911,Z17.0,Z12.31. TECHNIQUE: Bilateral full field digital CC and MLO mammographic images were obtained with 3D tomosyn thesis and utilizing computer aided detection (CAD). COMPARISON: Prior mammograms were reviewed. FINDINGS: Left breast lumpectomy site appears stable and more anteriorly located calcifications also appear rel atively stable. No radiographic evidence of malignancy in left breast. No new right breast findings. There are no new spiculated masses nor new malignant appearing microcalcification groups. IMPRESSION: No radiographic evidence of malignancy. Stable appearance of left breast lumpectomy site. BI-RADS Category 2 - Benign Findings Breast Density - Category B - Scattered areas of fibroglandular density Breast density Category C or D implies that the patient has dense breast tissue. Dense breast tissue can make it harder to find cancer on a mammogram. Dense breast tissue is also associated with an incr eased risk of breast cancer. This information about the result of the mammogram report was provided to the patient to raise their awareness. Use this report when you speak with the patient about their risks for breast cancer, which includes their family history. At that time, you may recommend additional screening tests (Ultrasoun d or MRI) as these tests may add significant information. A negative radiographic report should not delay biopsy if a dominant or clinically suspicious mass is present. Up to ten percent of cancers are not identified on mammography. A negative report may reinforce clinical impression. Adenosis and dense breasts may obscure an underlying neoplasm. False positive reports average 6 to 10%. Patient will receive a letter notifying them of these results.
--- NOTE | 2023-07-25 | DI.DEXA_ITS ---
Exam(s) XR DEXA BONE DENSITY W/WO KAREN EXAM: XR DEXA BONE DENSITY W/WO KAREN CLINICAL HISTORY: LONG-TERM USE AROMATASE INHIBITOR,Z79.811,LT BREAST CA TECHNIQUE: Routine DEXA evaluation of the lumbar spine, hip, or forearm. COMPARISON: CR XR DEXA BONE DENSITY W/WO KAREN from 03/23/2021 FINDINGS: Performed on a [employer] unit. Lateral image: No compression fracture evident. Lumbar Spine total T-score: 0.7. Prior reading in March 2021 was 0.3. Hip total T-score:0.9. Prior reading March 2021 was also 0.9. Independent reading at the level of the femoral neck yields T-score of -0.8 Forearm total T-score: 0.5 IMPRESSION: Bone mineral density measures in the normal range. Fracture risk is low. Note: Any spine fracture indicates 5x risk for subsequent spine fracture and 2x risk for subsequent h ip fracture. World Health Organization criteria for BMD interpretation classify patients: Normal...... T- Score at or above -1.0 Osteopenic... T- Score between -1.0 and -2.5 Osteoporosis... T-Score at or below -2.5
== END ==
PROVIDERS: PCP Nurse Practitioner Family; Visit Provider Nurse Practitioner Family
DX: Z79.811 Long term (current) use of aromatase inhibitors (principal); Z12.31 Encounter for screening mammogram for malignant neoplasm of breast; Z13.820 Encounter for screening for osteoporosis; C50.911 Malignant neoplasm of unspecified site of right female breast; Z17.0 Estrogen receptor positive status [ER+]
CPT/HCPCS: 77063; 77067; 77080

== ENCOUNTER 2024-01-01 01:12 | Outpatient (CLI) | payer MEDICARE, BC, SELFPAY ==
--- NOTE | 2024-01-01 | DI.US_ITS ---
Exam(s) MG MAMMO DIAGNOSTIC UNI US BREAST LT LIMITED EXAM: MG MAMMO DIAGNOSTIC UNI CLINICAL HISTORY: MASS LEFT BREAST N63.23 HX BREAST CANCER. COMPARISON: MG Screening Bilat Mammo from 07/16/2017 MG SCREENING - Call Back-Uni from 07/23/2017 US RIGHT BREAST ULTRASOUND from 07/23/2017 MG MG mammo diagnostic UNI from 01/28/2018 MG MG mammo screening from 09/18/2018 MG MG MAMMO SCREENING from 11/30/2019 MG MG MAMMO SCREEN CALL BACK UNI from 12/17/2019 US US BREAST LT LIMITED from 12/17/2019 MG MG MAMMO SPECIMEN from 01/14/2020 MG MG MAMMO NEEDLE LOC UNI from 01/14/2020 MG MG MAMMO SCREENING 60 MIN DUR from 12/28/2020 MG MG MAMMO SCREENING 60 MIN DUR from 02/15/2022 MG MG MAMMO DIAGNOSTIC UNI from 08/23/2022 MG MG MAMMO DIAGNOSTIC UNI from 11/26/2022 MG MG MAMMO SCREENING 60 MIN DUR from 07/25/2023 US US BREAST LT LIMITED from 01/01/2024 TECHNIQUE: Craniocaudal and mediolateral oblique Full Field Digital Mammography views of left breast with Computer Aided Diagnosis followed by Tomosynthesis and left breast breast ultrasound. FINDINGS: Mammography/Tomosynthesis: Masses/Architectural Distortion: No mass is seen. Postsurgical changes with surgical clips in the po sterior upper outer quadrant. Microcalcifications: No suspicious pleomorphic-type are seen. Stable coarse calcifications again noted more anteriorly in the lateral breast. Skin Thickening/Nipple Retraction: None. Left breast US: Echotexture: Normal appearance of the glandular tissue. Shadowing: None area of shadowing seen in the posterior upper outer quadrant in the vicinity of the s urgical clips. Cyst: None. Solid lesions: None seen. Ductal dilation: None. IMPRESSION: 1. No evidence of malignancy is noted. 2. Unless there is more urgent need, follow-up screening mammography is recommended, as per [employer] guidelines. 3. Negative mammogram and ultrasound should not preclude further investigation of clinically suspicio us findings. BI-RADS Category 2 - Benign Findings Breast Density - Category C - Heterogeneously dense Breast density category C or D implies that the patient has dense breast tissue. Dense breast tissue is very common and is not abnormal but dense breast tissue can make it harder to find cancer on a ma mmogram. Also, dense breast tissue may increase their breast cancer risk. This information about the result of the mammogram report was provided to the patient to raise their awareness. Use this report when you speak with the patient about their risks for breast cancer, which includes their family hist ory. At that time, you may recommend for more screening tests (Ultrasound or MRI) as they might be us eful based on their risk. A negative radiographic report should not delay biopsy if a dominant or clinically suspicious mass is present. Up to ten percent of cancers are not identified on mammography. A negative report may reinforce clinical impression. Adenosis and dense breasts may obscure an underlying neoplasm. False positive reports average 6 to 10%. Patient will receive a letter notifying them of these results.
== END 2024-01-01 01:32 ==
LOC: DI 01:12
PROVIDERS: PCP Nurse Practitioner Family; Visit Provider Nurse Practitioner Family
DX: N63.23 Unspecified lump in the left breast, lower outer quadrant (principal); Z12.31 Encounter for screening mammogram for malignant neoplasm of breast
CPT/HCPCS: 76642; 77061; 77065; G0279

== ENCOUNTER 2024-07-31 01:33 | Outpatient (CLI) | payer MEDICARE, BC, SELFPAY ==
--- NOTE | 2024-07-31 | DI.MAMMO_ITS ---
Exam(s) MG MAMMO SCREENING 60 MIN DUR EXAM: MG MAMMO SCREENING 60 MIN DUR CLINICAL HISTORY: History of L Breast Cancer Z85.3 screening TECHNIQUE: Mammograms were interpreted according to the usual protocol including computer analysis w ith CAD system, tomosynthesis and C-view imaging. COMPARISON: 2014 through 2023 FINDINGS: The breasts are composed of heterogeneously dense fibroglandular densities, Breast Density category C . No suspicious masses or suspicious microcalcifications are seen. Surgical clips are noted in the pos terior upper outer quadrant of the left breast related to lumpectomy. There are again coarse calcifi cations in the upper outer quadrant consistent with fat necrosis. No skin thickening or abnormal axillary lymph nodes are seen. There has been no significant change from prior exams. IMPRESSION: BI-RADS Category 2 - Negative Mammogram with benign findings. Yearly screening mammography is recom mended. Breast Density Category C, heterogeneously Dense. Breast density Category C or D implies that the patient has dense breast tissue. Dense breast tissue can make it harder to find cancer on a mammogram. Dense breast tissue is also associated with an incr eased risk of breast cancer. This information about the result of the mammogram report was provided to the patient to raise their awareness. Use this report when you speak with the patient about their risks for breast cancer, which includes their family history. At that time, you may recommend additional screening tests (Ultrasoun d or MRI) as these tests may add significant information. A negative radiographic report should not delay biopsy if a dominant or clinically suspicious mass is present. Up to ten percent of cancers are not identified on mammography. A negative report may reinforce clinical impression. Adenosis and dense breasts may obscure an underlying neoplasm. False positive reports average 6 to 10%.
== END 2024-07-31 01:53 ==
LOC: DI 01:33
PROVIDERS: PCP Nurse Practitioner Family; Visit Provider Nurse Practitioner Family
DX: Z12.31 Encounter for screening mammogram for malignant neoplasm of breast (principal); Z85.3 Personal history of malignant neoplasm of breast; R92.333 Mammographic heterogeneous density, bilateral breasts
CPT/HCPCS: 77063; 77067